=== PATIENT | female | born 1955 | race Caucasian/White ===

== ENCOUNTER → 2016-06-27 | Outpatient (CLI) | payer BC ==
--- NOTE | 2016-06-27 10:35 | MM ---
Reason for exam: follow-up at short interval from prior study. Last mammogram was performed 8 months ago. History: Patient is postmenopausal, has history of breast cancer at age 60, and is nulliparous. Family history of breast cancer in maternal aunt at age 43 and breast cancer in paternal grandmother at age 53. Malignant MG pre op needle loc RT of the right breast, December 10, 2015. Malignant MG stereo VAD BX RT of the right breast, October 21, 2015. Lumpectomy of the right breast, 2016. Radiation therapy of the right breast, 2016. Taking unspecified hormones for 1 year beginning at age 49. Physical Findings: Nurse did not find any significant physical abnormalities on exam. MG 3D Diag Mammo W/Cad ELKIN Bilateral CC and MLO view(s) were taken. XCCL view(s) were taken of the left breast. Prior study comparison: October 15, 2015, right breast US breast workup limited RT. October 14, 2015, right breast US breast workup RT. October 14, 2015, right breast MG 3d work up w/cad RT. August 15, 2013, bilateral MG screening mammo w CAD. November 23, 2011, bilateral digital screening mammo w/CAD. There are scattered fibroglandular densities. Post surgical and post therapy change in right breast. Large area of focal asymmetry with surgical clips suggestive of lumpectomy scar or post operative seroma. This can be reassessed in 6 months. These results were verbally communicated with the patient and result sheet given to the patient on 06/27/16. ASSESSMENT: Probably benign, BI-RAD 3 RECOMMENDATION: Follow-up diagnostic mammogram of the right breast in 6 months.
== END | disposition home or self-care (01) ==
LOC: RADMAMWWP 09:08
PROVIDERS: ATTEND Radiology Radiation Oncology
DX: Z85.3 Personal history of malignant neoplasm of breast (principal)
CPT/HCPCS: G0204; G0279

== ENCOUNTER → 2016-09-12 | Outpatient (CLI) | payer BC ==
[2016-09-12 10:17] LABS: Basophils # (A) 0.1 k/uL (0-0.2); Basophils % (A) 1 %; CH 28.4; CHCM 32.7; Eosinophils # (A) 0.2 k/uL (0-0.7); Eosinophils % (A) 3 %; HCT 39.5 % (34.0-46.0); HDW 2.52; HGB 13.1 gm/dL (11.4-16.0); Luc # (Auto) 0.14; Luc % (Auto) 2; Lymphocytes # (A) 1.4 k/uL (1.0-4.8); Lymphocytes % (A) 21 %; MCHC 33.1 g/dL (31.0-37.0); MCV 87.5 fL (80.0-100.0); Monocytes # (A) 0.4 k/uL (0-1.0); Monocytes % (A) 5 %; Neutrophils # (A) 4.5 k/uL (1.3-7.7); Neutrophils % (A) 67 %; RBC 4.51 m/uL (3.80-5.40); WBC 6.7 k/uL (3.8-10.6); WBC (Perox) 6.95
[2016-09-12 10:43] LABS: ALT 55 U/L (9-52); AST 32 U/L (14-36); Alkaline Phosphatase 111 U/L (38-126); Anion Gap 13 mmol/L; Blood Urea Nitrogen 18 mg/dL (7-17); Calcium 9.8 mg/dL (8.4-10.2); Carbon Dioxide 24 mmol/L (22-30); Chloride 105 mmol/L (98-107); Cholesterol 141 mg/dL (<200); Glucose 99 mg/dL (74-99); HDL Cholesterol 48 mg/dL (40-60); Non-African American GFR(MDRD) >60 (>60 ml/min/1.73 sqM); Potassium 4.3 mmol/L (3.5-5.1); Sodium 142 mmol/L (137-145); Total Bilirubin 0.5 mg/dL (0.2-1.3); Total Protein 6.6 g/dL (6.3-8.2); Triglycerides 93 mg/dL (<150)
[2016-09-12 10:50] LABS: Prealbumin 17 mg/dL (18-36)
[2016-09-12 11:30] LABS: Vitamin B12 880 pg/mL (239-931)
[2016-09-12 15:23] LABS: Hemoglobin A1C 5.8 % (4.2-6.1)
== END | disposition home or self-care (01) ==
LOC: LABWHC1 09:21
PROVIDERS: ATTEND Family Medicine
DX: E03.9 Hypothyroidism, unspecified (principal)
CPT/HCPCS: 36415; 80053; 80061; 82306; 82607; 82747; 83036; 84134; 84425; 84439; 84443; 85025

== ENCOUNTER → 2016-11-06 | Outpatient (CLI) | payer BC ==
[2016-11-06 10:19] LABS: Basophils # (A) 0.1 k/uL (0-0.2); Basophils % (A) 1 %; CH 28.6; CHCM 32.7; Eosinophils # (A) 0.3 k/uL (0-0.7); Eosinophils % (A) 4 %; HGB 13.8 gm/dL (11.4-16.0); Luc # (Auto) 0.16; Luc % (Auto) 2; Lymphocytes # (A) 1.7 k/uL (1.0-4.8); Lymphocytes % (A) 24 %; MCV 87.8 fL (80.0-100.0); Mean Platelet Volume 6.6; Monocytes # (A) 0.4 k/uL (0-1.0); Monocytes % (A) 5 %; Neutrophils # (A) 4.6 k/uL (1.3-7.7); Neutrophils % (A) 64 %; RBC 4.78 m/uL (3.80-5.40); RDW 13.7 % (11.5-15.5); WBC 7.2 k/uL (3.8-10.6); WBC (Perox) 7.64
[2016-11-06 10:41] LABS: ALT 48 U/L (9-52); AST 32 U/L (14-36); Alkaline Phosphatase 126 U/L (38-126); Anion Gap 11 mmol/L; Blood Urea Nitrogen 18 mg/dL (7-17); C Reactive Protein 26.3 mg/L (<10.0); Calcium 10.1 mg/dL (8.4-10.2); Carbon Dioxide 27 mmol/L (22-30); Chloride 103 mmol/L (98-107); Creatine Kinase 208 U/L (30-135); Glucose 108 mg/dL (74-99); Magnesium 1.8 mg/dL (1.6-2.3); Non-African American GFR(MDRD) >60 (>60 ml/min/1.73 sqM); Potassium 4.1 mmol/L (3.5-5.1); Sodium 141 mmol/L (137-145); Total Bilirubin 0.4 mg/dL (0.2-1.3); Total Protein 7.1 g/dL (6.3-8.2); Uric Acid 5.1 mg/dL (3.7-7.4)
[2016-11-06 10:42] LABS: Rheumatoid Factor, Qnt <9 IU/mL (<12)
[2016-11-06 11:27] LABS: Vitamin B12 686 pg/mL (239-931)
[2016-11-06 12:25] LABS: Hemoglobin A1C 5.7 % (4.2-6.1)
[2016-11-06 12:55] LABS: Erythrocyte Sedimentation Rate 26 mm/hr (0-20)
[2016-11-06 15:38] LABS: Iron 64 ug/dL (50-170); Iron Saturation 22.07 (12.00-45.00); Total Iron Binding Capacity 290 ug/dL (228-460)
[2016-11-06 16:55] LABS: ANA w/Reflex to Titer NEGATIVE (NEGATIVE); Cyclic Citrull Pep IgG Unit <0.5 U/mL; Cyclic Citrullinated Pep IgG NEGATIVE (NEGATIVE)
[2016-11-07 10:44] LABS: Lyme IgG/IgM Interp NEGATIVE (NEGATIVE)
== END | disposition home or self-care (01) ==
LOC: LABWHC1 09:35
PROVIDERS: ATTEND Family Medicine
DX: M13.0 Polyarthritis, unspecified (principal); K90.9 Intestinal malabsorption, unspecified; E55.9 Vitamin D deficiency, unspecified
CPT/HCPCS: 36415; 80053; 82306; 82550; 82607; 82728; 83036; 83540; 83550; 83735; 83880; 84165; 84425; 84439; 84443; 84550; 85025; 85652; 86038; 86140; 86200; 86431; 86618

== ENCOUNTER → 2016-11-23 | Outpatient (CLI) | payer BC ==
--- NOTE | 2016-11-23 15:14 | PN ---
PROGRESS NOTE DATE OF SERVICE: 11/23/2016 61-year-old lady has been followed in [facility] for treatment of obstructive sleep apnea-hypopnea syndrome. She continued to use her CPAP equipment successfully every night without significant problems related to her feeling of pressure or discomfort with the mask or humidification. During the summer, the patient had gastric sleeve surgery and lost weight from around 311 pounds down to 247 pounds. I checked her CPAP unit. CPAP pressure is 15 cm of water usage is 26/30 nights for more than 4 hours. Average usage is 6.6 hours. Leak is 31 L/minute which is borderline. Apnea-hypopnea index is only 2.7 for the last month; for the 6 months usage is 144/180 for more than 4 hours. In 6 months apnea-hypopnea index was 4.2, but at that time patient had higher weight then now. [place] Sleepiness Scale 14. MEDICATIONS: Synthroid, Prilosec, Wellbutrin, Diovan, vitamin B12, calcium supplement, Xanax, Claritin, Motrin, Arimidex, Requip, Lasix, Klonopin, melatonin 20 mg at nighttime, Voltaren. ALLERGY: , amoxicillin. PHYSICAL EXAM: During physical exam, lady without distress. BP 135/72, HR 70, RR 16, height 5 foot 4, weight 247, BMI 42.3, temperature 97.4, oxygen saturation room air 99%. HEENT: PERRLA, EOMI, evaluation of oropharynx showed low position of soft palate. NECK: Supple, no JVD. Thyroid is not palpable. LUNGS: Clear to percussion and to auscultation. Good air exchange. No wheezing or rhonchi. HEART: Very soft systolic murmurs on aorta. ABDOMEN: Obese. Soft and nontender. Bowel sounds are present. No organomegaly appreciated. EXTREMITIES: 1+ ankle edema. No clubbing or cyanosis. WICK TENDER: Awake, alert, and oriented X3. Cranial nerves 2 to 7 intact. There is no fasciculation or atrophy. noted. No focal deficits observed. IMPRESSION: 1. Obstructive sleep apnea-hypopnea syndrome. Patient demonstrated good compliance with treatment benefitting from treatment. 2. Obesity. Patient lost about 60 pounds since gastric sleeve surgery 3 months ago. 3. Gastric sleeve surgery 3 months ago. 4. Depression. 5. Hypertension. 6. Status post tonsillectomy. 7. Status post surgery for nasal septum deviation. 8. Hypothyroidism. 9. Acid reflux. 10.Anxiety. 11.Allergy. 12.Status post lumpectomy and radiation for the right breast CA about 1 year ago. PLAN: 1. Continue treatment with CPAP every night. I believe we could continue usage at present regimen. 2. Followup visit in 4 months. The patient may need adjustments of the pressure after she loses more weight. 3. No driving if feeling sleepiness. 4. Sleep hygiene with regular time in bed for at least 8 hours. Thank you very much for allowing me to participate in management of patient's care. Sincerely, Guillermo Arriaga MD, PhD, FAASM Diplomat of [employer] Texturing Machine Fixer of [facility] [place] SILVANA / AMEYA: [id number] /
== END ==
LOC: SLEEP 13:12
PROVIDERS: ATTEND Internal Medicine
DX: G47.33 Obstructive sleep apnea (adult) (pediatric) (principal); E66.9 Obesity, unspecified; F32.9 Major depressive disorder, single episode, unspecified; I10 Essential (primary) hypertension; E03.9 Hypothyroidism, unspecified; K21.9 Gastro-esophageal reflux disease without esophagitis; F41.9 Anxiety disorder, unspecified; Z98.890 Other specified postprocedural states; Z90.89 Acquired absence of other organs; Z68.41 Body mass index [BMI] 40.0-44.9, adult; Z79.899 Other long term (current) drug therapy; Z88.0 Allergy status to penicillin

== ENCOUNTER → 2017-01-01 | Outpatient (CLI) | payer BC ==
--- NOTE | 2017-01-01 14:08 | MM ---
Reason for exam: follow-up at short interval from prior study. Last mammogram was performed 6 months ago. History: Patient is postmenopausal, has history of bilateral breast cancer at age 60, and is nulliparous. Family history of breast cancer in maternal aunt at age 43 and breast cancer in paternal grandmother at age 53. Malignant MG pre op needle loc RT of the right breast, December 10, 2015. Malignant MG stereo VAD BX RT of the right breast, October 21, 2015. Lumpectomy of the right breast, 2016. Radiation therapy of the right breast, 2016. Taking unspecified hormones for 1 year beginning at age 49. Physical Findings: Nurse did not find any significant physical abnormalities on exam. MG 3D Diag Mammo W/Cad RT CC and MLO view(s) were taken of the right breast. Prior study comparison: June 27, 2016, bilateral MG 3d diag mammo w/cad ELKIN. October 14, 2015, right breast MG 3d work up w/cad RT. There are scattered fibroglandular densities. Post surgical and post therapy changes right breast. some interval fat necrosis at the medial scar. Axillary nodes are stable. Evolving post therapy changes can be reassessed in 6 months. These results were verbally communicated with the patient and result sheet given to the patient on 01/01/17. ASSESSMENT: Probably benign, BI-RAD 3 RECOMMENDATION: Follow-up diagnostic mammogram of both breasts in 6 months. Back on schedule.
== END | disposition home or self-care (01) ==
LOC: RADMAMWWP 12:46
PROVIDERS: ATTEND Radiology Radiation Oncology
DX: C50.511 Malignant neoplasm of lower-outer quadrant of right female breast (principal); Z85.3 Personal history of malignant neoplasm of breast
CPT/HCPCS: G0206; G0279

== ENCOUNTER → 2017-02-09 | Outpatient (CLI) | payer BC ==
[2017-02-10 14:12] LABS: CH 27.5; CHCM 30.7; HGB 13.7 gm/dL (11.4-16.0); Hypochromasia Slight; MCH 28.1 pg (25.0-35.0); MCHC 31.1 g/dL (31.0-37.0); MCV 90.2 fL (80.0-100.0); Mean Platelet Volume 8.6; RBC 4.88 m/uL (3.80-5.40); RDW 14.3 % (11.5-15.5); WBC 9.7 k/uL (3.8-10.6)
[2017-02-10 15:09] LABS: ALT 48 U/L (9-52); AST 45 U/L (14-36); Alkaline Phosphatase 164 U/L (38-126); Anion Gap 14 mmol/L; Blood Urea Nitrogen 24 mg/dL (7-17); Calcium 10.2 mg/dL (8.4-10.2); Carbon Dioxide 27 mmol/L (22-30); Chloride 101 mmol/L (98-107); Glucose 94 mg/dL (74-99); Non-African American GFR(MDRD) >60 (>60 ml/min/1.73 sqM); Potassium 4.4 mmol/L (3.5-5.1); Sodium 142 mmol/L (137-145); Total Bilirubin 0.5 mg/dL (0.2-1.3); Total Protein 7.4 g/dL (6.3-8.2)
== END | disposition home or self-care (01) ==
LOC: LABWHC1 11:05
PROVIDERS: ATTEND Surgery
DX: E66.01 Morbid (severe) obesity due to excess calories (principal); K90.9 Intestinal malabsorption, unspecified; E55.9 Vitamin D deficiency, unspecified
CPT/HCPCS: 36415; 80053; 82306; 82607; 83540; 84425; 85027

== ENCOUNTER → 2017-04-05 | Outpatient (CLI) | payer BC ==
--- NOTE | 2017-04-05 14:30 | PN ---
PROGRESS NOTE DATE OF SERVICE: 04/05/2017 A 61-year-old lady who has been followed in the Sleep Center for treatment of obstructive sleep apnea-hypopnea syndrome. Patient continued to use her CPAP equipment, but presently feels that the pressure is too high. She lost 110 pounds since previous titration. I checked her CPAP unit. CPAP pressure is 15 cm of water. Average usage 5.8 hours. Leak is up to 42 L/minute. For last several days patient was not able to use the machine because again of the pressure. [place] Sleepiness Scale today is 8. MEDICATIONS: Synthroid, Prilosec, Wellbutrin, valsartan, Xanax, Arimidex, Requip, Lasix, potassium supplement, Voltaren, Klonopin, vitamin B12 supplement, calcium supplement, multivitamin chewable tablets, vitamin E, B1, zinc, melatonin. PHYSICAL EXAM: Patient in no distress. BP 116/70, HR 83, RR 16, height 5, 4. Weight 203, BMI 34.8, temperature 98.0, oxygen saturation at room air 99%. OROPHARYNX: Low position of soft palate. ABDOMEN: Obese. Neck Supple, no JVD. Thyroid is not palpable. LUNGS Clear to percussion and to auscultation. Good air exchange. No wheezing or rhonchi. HEART S1, S2 regular. No murmurs, gallops, or rubs. EXTREMITIES No clubbing or cyanosis. LOADING SUPERVISOR Awake, alert, and oriented X3. Cranial nerves 2 to 7 intact. There is no fasciculation or atrophy. noted. No focal deficits observed. IMPRESSION: 1. Obstructive sleep apnea-hypopnea syndrome. Patient cannot use CPAP equipment after losing 110 pounds. 2. Obesity. 3. Status post gastric sleeve surgery in July of 2016. 4. Depression. 5. Hypertension. 6. Status post tonsillectomy. 7. Status post surgical treatment for nasal septum deviation. 8. Hypothyroidism. 9. Acid reflux. 10.Anxiety. 11.Allergy. 12.Status post lumpectomy and radiation for right breast CA about 1-1/2 years ago. PLAN: 1. I will repeat the CPAP titration for evaluation of effective CPAP pressure at the present time. 2. Losing weight. 3. Sleep hygiene with regular time in bed for at least 8 hours. 4. No driving if feeling any sleepiness. Thank you very much for allowing me to participate in the management of your patient. Sincerely, Guillermo Arriaga MD, PhD, FAASM Diplomat of [employer] Coke Burner of [facility] [place] SILVANA / AMEYA: [id number] /
== END | disposition home or self-care (01) ==
LOC: SLEEP 13:09
PROVIDERS: ATTEND Internal Medicine
DX: G47.33 Obstructive sleep apnea (adult) (pediatric) (principal); E66.9 Obesity, unspecified; I10 Essential (primary) hypertension; F32.9 Major depressive disorder, single episode, unspecified; E03.9 Hypothyroidism, unspecified; K21.9 Gastro-esophageal reflux disease without esophagitis; F41.9 Anxiety disorder, unspecified; T78.40XA Allergy, unspecified, initial encounter; Z98.84 Bariatric surgery status; Z90.89 Acquired absence of other organs; Z99.89 Dependence on other enabling machines and devices; Z92.3 Personal history of irradiation; Z98.890 Other specified postprocedural states; Z68.34 Body mass index [BMI] 34.0-34.9, adult; Z79.899 Other long term (current) drug therapy

== ENCOUNTER → 2017-07-02 | Outpatient (CLI) | payer BC ==
--- NOTE | 2017-07-02 10:14 | MM ---
Reason for exam: additional evaluation requested from prior study. Last mammogram was performed 6 months ago. History: Patient is postmenopausal, has history of bilateral breast cancer at age 60, and is nulliparous. Family history of breast cancer in maternal aunt at age 43 and breast cancer in paternal grandmother at age 53. Malignant MG pre op needle loc RT of the right breast, December 10, 2015. Malignant MG stereo VAD BX RT of the right breast, October 21, 2015. Lumpectomy of the right breast, 2015. Radiation therapy of the right breast, 2016. Taking unspecified hormones for 1 year beginning at age 49. Physical Findings: Nurse did not find any significant physical abnormalities on exam. MG 3D Diag Mammo W/Cad ELKIN Bilateral CC and MLO view(s) were taken. Prior study comparison: January 01, 2017, right breast MG 3d diag mammo w/cad RT. June 27, 2016, bilateral MG 3d diag mammo w/cad ELKIN. No significant new findings when compared with previous films. These results were verbally communicated with the patient and result sheet given to the patient on 07/02/17. ASSESSMENT: Benign, BI-RAD 2 RECOMMENDATION: Follow-up diagnostic mammogram of both breasts in 1 year.
== END | disposition home or self-care (01) ==
LOC: RADMAMWWP 09:03
PROVIDERS: ATTEND Radiology Radiation Oncology
DX: Z08 Encounter for follow-up examination after completed treatment for malignant neoplasm (principal); Z85.3 Personal history of malignant neoplasm of breast
CPT/HCPCS: 77062; 77066

== ENCOUNTER → 2017-09-11 | Outpatient (CLI) | payer BC ==
[2017-09-11 09:15] LABS: ALT 96 U/L (9-52); AST 47 U/L (14-36); Albumin 3.7 g/dL (3.5-5.0); Alkaline Phosphatase 95 U/L (38-126); Anion Gap 7 mmol/L; Blood Urea Nitrogen 20 mg/dL (7-17); Calcium 9.4 mg/dL (8.4-10.2); Carbon Dioxide 26 mmol/L (22-30); Chloride 106 mmol/L (98-107); Glucose 91 mg/dL (74-99); HCT 39.1 % (34.0-46.0); HGB 12.8 gm/dL (11.4-16.0); MCH 29.2 pg (25.0-35.0); MCHC 32.8 g/dL (31.0-37.0); Mean Platelet Volume 6.5; Platelet Count 238 k/uL (150-450); Potassium 4.3 mmol/L (3.5-5.1); RBC 4.39 m/uL (3.80-5.40); RDW 13.3 % (11.5-15.5); Sodium 139 mmol/L (137-145); Total Bilirubin 0.3 mg/dL (0.2-1.3); Total Protein 6.2 g/dL (6.3-8.2); WBC 5.6 k/uL (3.8-10.6)
[2017-09-11 16:07] LABS: Vitamin D 25 Hydroxy 57.4 ng/mL (30.0-100.0)
== END | disposition home or self-care (01) ==
LOC: LABWHC1 08:24
PROVIDERS: ATTEND Surgery
DX: K90.9 Intestinal malabsorption, unspecified (principal); E55.9 Vitamin D deficiency, unspecified
CPT/HCPCS: 36415; 80053; 82306; 82607; 83540; 84425; 85027

== ENCOUNTER → 2017-09-28 | Outpatient (CLI) | payer BC ==
[2017-09-28 07:22] LABS: Basophils # (A) 0.1 k/uL (0-0.2); Basophils % (A) 1 %; Eosinophils # (A) 0.3 k/uL (0-0.7); Eosinophils % (A) 4 %; HCT 42.3 % (34.0-46.0); HGB 13.9 gm/dL (11.4-16.0); Lymphocytes # (A) 2.5 k/uL (1.0-4.8); Lymphocytes % (A) 37 %; MCHC 32.8 g/dL (31.0-37.0); MCV 88.4 fL (80.0-100.0); Mean Platelet Volume 7.1; Monocytes # (A) 0.4 k/uL (0-1.0); Monocytes % (A) 6 %; Neutrophils # (A) 3.3 k/uL (1.3-7.7); Neutrophils % (A) 48 %; Platelet Count 229 k/uL (150-450); RBC 4.79 m/uL (3.80-5.40); RDW 12.9 % (11.5-15.5); WBC 6.8 k/uL (3.8-10.6)
== END | disposition home or self-care (01) ==
LOC: LABWHC1 07:10
PROVIDERS: ATTEND Internal Medicine
DX: I10 Essential (primary) hypertension (principal)
CPT/HCPCS: 36415; 80061; 84443; 85025

== ENCOUNTER → 2018-01-18 | Day surgery (SDC) | payer BC ==
[2018-01-14 15:47] VITALS: BMI 29.8
[~2018-01-18] MED LIST: LACTATED RINGERS 1,000 ML IV ONE; LACTATED RINGERS 1,000 ML IV SCH; LIDOCAINE 1% INJ 10MG/ML (20 ML MDV) ONE; PROPOFOL 10 MG/ML 20 ML VIAL IV ONE
[2018-01-18 07:17] VITALS: RESP 16; TEMP 97.6
--- NOTE | 2018-01-18 07:40 | P.GSHP ---
History of Present Illness H&P Date: 01/18/18 Chief Complaint: Colon cancer screening Patient here today for colonoscopy. This is for screening purposes. No bowel related complaints. Last colonoscopy 7-10 years ago which was normal. No rectal bleeding or melena. Past Medical History Past Medical History: Cancer, GERD/Reflux, Hypertension, Osteoarthritis (OA), Sleep Apnea/CPAP/BIPAP, Thyroid Disorder Additional Past Medical History / Comment(s): breast CA dx Oct 2015, CPAP History of Any Multi-Drug Resistant Organisms: None Reported Past Surgical History: Bariatric Surgery, Breast Surgery, Joint Replacement, Orthopedic Surgery, Tonsillectomy Additional Past Surgical History / Comment(s): fatou knee replacement, ORIF rt shoulder,sleep apnea surg,sinus surg, GASTRIC SLEEVE 07/2016, RT BREAST LUMPECTOMY, COLONOSCOPY Past Anesthesia/Blood Transfusion Reactions: No Reported Reaction Smoking Status: Never smoker - Past Family History Mother Family Medical History: Cancer Additional Family Medical History / Comment(s): breast lumpectomy Father Family Medical History: Memory Impairment Additional Family Medical History / Comment(s): osteoporosis Medications and Allergies Home Medications Medication Instructions Recorded Confirmed Type Acetaminophen Tab [Tylenol Tab] 1,000 mg PO BID PRN #0 11/11/13 01/18/18 History Levothyroxine Sodium [Synthroid] 100 mcg PO QAM 11/11/13 01/18/18 History Pseudoephedrine HCl [Sudafed 12 120 mg PO HS PRN 11/11/13 01/18/18 History Hour] buPROPion XL [Wellbutrin XL] 200 mg PO BID 11/11/13 01/18/18 History ALPRAZolam [Xanax] 0.25 mg PO BID PRN #30 tablet 11/20/13 01/18/18 Rx Melatonin 10 mg PO HS 12/08/15 01/18/18 History Vitamin E (Dl,Tocopheryl Acet) 400 unit PO DAILY 12/08/15 01/14/18 History [Vitamin E] Zinc 50 mg PO DAILY 12/08/15 01/18/18 History Anastrozole [Arimidex] 1 mg PO HS 01/14/18 01/18/18 History Calcium Carb/Vitamin D3/Vit K1 1 each PO BID 01/14/18 01/18/18 History [Citracal Soft Chew] Cyanocobalamin (Vitamin B-12) 1,000 mcg PO MO 01/14/18 01/18/18 History [Vitamin B-12] Ibuprofen [Motrin Ib] 400 mg PO BID 01/14/18 01/14/18 History Iron 18 mg PO DAILY 01/14/18 01/14/18 History Losartan Potassium [Cozaar] 25 mg PO DAILY 01/14/18 01/18/18 History Multivitamin [Multivitamins Adult 1 each PO DAILY 01/14/18 01/18/18 History Gummies] Thiamine [Vitamin B-1] 100 mg PO DAILY 01/14/18 01/18/18 History Vit C/E/Zn/Coppr/Lutein/Zeaxan 1 each PO DAILY 01/14/18 01/18/18 History [Preservision Areds 2 Softgel] rOPINIRole HCL [Requip] 0.25 mg PO HS 01/14/18 01/18/18 History Allergies Allergy/AdvReac Type Severity Reaction Status Date / Time Sulfa (Sulfonamide Allergy Severe Rash/Hives, Verified 01/18/18 07:24 Antibiotics) itching amoxicillin [Amoxicillin] Allergy Unknown Rash/Hives Verified 01/18/18 07:24 Surgical - Exam Vital Signs Temp Pulse Resp BP Pulse Ox 97.6 F 77 16 133/71 98 01/18/18 07:16 01/18/18 07:16 01/18/18 07:16 01/18/18 07:16 01/18/18 07:16 Physical exam: General: Well-developed, well-nourished HEENT: Normocephalic, sclerae nonicteric Abdomen: Nontender, nondistended Extremities: No edema Neuro: Alert and oriented Assessment and Plan (1) Colon cancer screening Narrative/Plan: Will proceed with colonoscopy at this time. Current Visit: Yes Status: Acute Code(s): Z12.11 - ENCOUNTER FOR SCREENING FOR MALIGNANT NEOPLASM OF COLON SNOMED Code(s): 226270852
--- NOTE | 2018-01-18 07:52 | P.PCN ---
Date of Procedure: 01/18/18 Procedure(s) Performed: PREOPERATIVE DIAGNOSIS: Colon cancer screening POSTOPERATIVE DIAGNOSIS: Poor prep aborted procedure PROCEDURE: Attempted colonoscopy ANESTHESIA: MAC SURGEON: Devendra Mccormick M.D. SPECIMENS: None ENDOSCOPIC PROCEDURE: The patient was placed on the endoscopy table in the left decubitus position. The Olympus colonoscope was inserted into the anus and passed under direct visualization to the proximal sigmoid colon. The patient had liquid and solid stool seen throughout. I was unable to visualize really any of the mucosal surfaces. The scope was withdrawn and the procedure was aborted. The patient was taken to the recovery room in stable condition per anesthesia guidelines. RECOMMENDATIONS: Patient will require repeat attempts at colonoscopy.
[2018-01-18 08:03] VITALS: BP 111/68; PULSE 80
== END ==
LOC: ORWHC2ENDO 06:41
PROVIDERS: ATTEND Surgery
DX: Z12.11 Encounter for screening for malignant neoplasm of colon (principal); E07.9 Disorder of thyroid, unspecified; I10 Essential (primary) hypertension; K21.9 Gastro-esophageal reflux disease without esophagitis; M19.90 Unspecified osteoarthritis, unspecified site; Z85.3 Personal history of malignant neoplasm of breast; Z88.0 Allergy status to penicillin; Z96.653 Presence of artificial knee joint, bilateral; Z98.84 Bariatric surgery status; Z79.1 Long term (current) use of non-steroidal anti-inflammatories (NSAID); Z79.890 Hormone replacement therapy; Z79.899 Other long term (current) drug therapy; Z88.2 Allergy status to sulfonamides; Z53.8 Procedure and treatment not carried out for other reasons
CPT/HCPCS: J2001; J2704; G0104

== ENCOUNTER → 2018-02-15 | Outpatient (CLI) | payer BC ==
--- NOTE | 2018-02-15 16:55 | BD ---
EXAMINATION TYPE: Axial Bone Density DATE OF EXAM: 02/15/2018 COMPARISON: NONE CLINICAL HISTORY: Height: 64 Weight: 175.9 FRAX RISK QUESTIONS: Alcohol (3 or more units per day): no Family History (Parent hip fracture): no Glucocorticoids (More than 3mos): no (Ex: prednisone, prednisolone, methylprednisolone, dexamethasone, and hydrocortisone). History of Fracture in Adulthood: no Secondary Osteoporosis: 1. Type 1 Diabetes: no 2. Hyperthyroidism: no 3. Menopause before 45: no 4. Malnutrition: no 5. Chronic liver disease: no Rheumatoid Arthritis: no Current Tobacco Use: no RISK FACTORS HISTORY OF: Family History of Osteoporosis: yes Active: yes Diet low in dairy products/other sources of calcium: no Postmenopausal woman: age 59 Lost more than 2 inches in height since high school: no MEDICATIONS: arimadex, losartin, wellbutrin, vitamins, calcium Thyroid Medications: synthroid How Lon years Additional History: breast cancer two years ago EXAM MEASUREMENTS: Bone mineral densitometry was performed using the [employer] System. Bone mineral density as measured about the Lumbar spine is: ----- L1-L4(G/cm2): 1.895 T Score Values are as follows: ----- L2: 6.2 ----- L3: 5.6 ----- L4: 5.0 ----- L1-L4: 5.7 Bone mineral density has: decreased -0.5 % since study of: 01.28.2016 Bone mineral density about the R hip (g/cm2): 1.145 Bone mineral density about the L hip (g/cm2): 1.310 T Score values are as follows: -----R Neck: -0.8 -----L Neck: 2.0 -----R Total: 1.7 -----L Total: 2.6 Bone mineral density has: decreased -2.7 % since study of: 01.28.2016 IMPRESSION: Normal (Values between +1 and -1 indicate normal bone mass). Consider repeating this study in 5 year s or sooner if there is some new clinical indication. NOTE: T-SCORE=SD OF THE YOUNG ADULT MEAN.
== END | disposition home or self-care (01) ==
LOC: RADBDWWP 09:30
PROVIDERS: ATTEND Internal Medicine Hematology & Oncology
DX: C50.211 Malignant neoplasm of upper-inner quadrant of right female breast (principal); Z79.890 Hormone replacement therapy
CPT/HCPCS: 77080

== ENCOUNTER → 2018-06-28 | Outpatient (CLI) | payer BC ==
--- NOTE | 2018-06-28 11:30 | MM ---
Reason for exam: additional evaluation requested from prior study. Last mammogram was performed 1 year ago. History: Patient is postmenopausal, has history of bilateral breast cancer at age 60, and is nulliparous. Family history of breast cancer in maternal aunt at age 43 and breast cancer in paternal grandmother at age 53. Malignant MG pre op needle loc RT of the right breast, December 10, 2015. Malignant MG stereo VAD BX RT of the right breast, October 21, 2015. Lumpectomy of the right breast, 2015. Radiation therapy of the right breast, 2016. Taking unspecified hormones for 1 year beginning at age 49. Physical Findings: Nurse did not find any significant physical abnormalities on exam. MG 3D Diag Mammo W/Cad ELKIN Bilateral CC and MLO view(s) were taken. Prior study comparison: July 02, 2017, bilateral MG 3d diag mammo w/cad ELKIN. January 01, 2017, right breast MG 3d diag mammo w/cad RT. The breast tissue is heterogeneously dense. This may lower the sensitivity of mammography. Stable benign calcifications. Stable post lumpectomy changes right breast. No significant new findings when compared with previous films. These results were verbally communicated with the patient and result sheet given to the patient on 06/28/18. ASSESSMENT: Benign, BI-RAD 2 RECOMMENDATION: Follow-up diagnostic mammogram of both breasts in 1 year.
== END | disposition home or self-care (01) ==
LOC: RADMAMWWP 08:43
PROVIDERS: ATTEND Radiology Radiation Oncology
DX: C50.511 Malignant neoplasm of lower-outer quadrant of right female breast (principal); Z98.890 Other specified postprocedural states
CPT/HCPCS: 77062; 77066

== ENCOUNTER → 2018-09-02 | Outpatient (CLI) | payer BC ==
[2018-09-02 09:02] LABS: Basophils # (A) 0.1 k/uL (0-0.2); Basophils % (A) 1 %; Eosinophils # (A) 0.3 k/uL (0-0.7); Eosinophils % (A) 4 %; HGB 13.1 gm/dL (11.4-16.0); Lymphocytes # (A) 2.3 k/uL (1.0-4.8); Lymphocytes % (A) 36 %; MCH 28.8 pg (25.0-35.0); MCHC 31.9 g/dL (31.0-37.0); MCV 90.2 fL (80.0-100.0); Mean Platelet Volume 6.3; Monocytes # (A) 0.3 k/uL (0-1.0); Monocytes % (A) 5 %; Neutrophils # (A) 3.2 k/uL (1.3-7.7); Neutrophils % (A) 50 %; Platelet Count 251 k/uL (150-450); RBC 4.54 m/uL (3.80-5.40); RDW 13.5 % (11.5-15.5); WBC 6.3 k/uL (3.8-10.6)
[2018-09-02 16:07] LABS: African American GFR (CKD) 107.6 (60.0-200.0); Albumin 4.1 g/dL (3.80-4.90); Albumin/Globulin Ratio 2.28 (1.60-3.17); Anion Gap 6.3 mmol/L (4.00-12.00); BUN/Creat Ratio 25.71 Ratio (12.00-20.00); Calcium 9.7 mg/dL (8.7-10.3); Carbon Dioxide 28.7 mmol/L (21.6-31.8); Globulin 1.8 g/dL (1.6-3.3); LDL Cholesterol,Calculated 80.8 mg/dL (0.0-131.0); Potassium 4.2 mmol/L (3.5-5.5); Total Bilirubin 0.4 mg/dL (0.2-1.2); Total Protein 5.9 g/dL (6.2-8.2); VLDL Calculation 15.2 mg/dL (5.00-40.00)
[2018-09-02 16:16] LABS: Vitamin D 25 Hydroxy 31.7 ng/mL (30.0-100.0)
[2018-09-02 16:27] LABS: Folate, Serum >24.0 ng/mL
== END | disposition home or self-care (01) ==
LOC: LABWHC1 08:09
PROVIDERS: ATTEND Surgery
DX: E66.01 Morbid (severe) obesity due to excess calories (principal); K90.9 Intestinal malabsorption, unspecified; E55.9 Vitamin D deficiency, unspecified; I10 Essential (primary) hypertension; E03.9 Hypothyroidism, unspecified; Z13.220 Encounter for screening for lipoid disorders
CPT/HCPCS: 36415; 80053; 80061; 82306; 82607; 82746; 83540; 84425; 84443; 85025

== ENCOUNTER → 2019-03-06 | Outpatient (CLI) | payer BC ==
--- NOTE | 2019-03-06 16:00 | SFUN ---
SLEEP CENTER FOLLOW UP NOTE DATE OF SERVICE: 03/06/2019 A 63-year-old lady who has been followed in the Sleep Center for treatment of obstructive sleep apnea-hypopnea syndrome. The patient continued to use her CPAP equipment, but then developed some problems related to usage of nasal pillow mask, irritation of her nose. [place] Sleepiness Scale today is 13. I checked her CPAP unit, CPAP pressure is 7 cm of water. Usage is 14/30 nights for the last month and 10/30 nights for more than 4 hours for the last 6 months. It is 151 nights usage and 134 nights more than 4 hours with average usage 5.6 hours per night. Leak 7 L/minute, For the last month, apnea-hypopnea index 7.9. MEDICATIONS: Synthroid, Wellbutrin, losartan, Xanax, Arimidex, Requip, Motrin, zinc, melatonin, Xanax. PHYSICAL EXAM: Patient in no distress, BP 140/80, HR 90, RR 16, height 5 feet 3-1/2 inches, weight 189, which is 2 pounds less than during the previous visit and body mass index 32.9, temperature 98.5, oxygen saturation at room air 98%. OROPHARYNX: Low position of soft palate, Mallampati 3. ABDOMEN: Obese. NECK: Supple, no JVD. Thyroid is not palpable. LUNGS: Clear to percussion and to auscultation. Good air exchange. No wheezing or rhonchi. HEART: S1, S2 regular. No murmurs, gallops, or rubs. ABDOMEN: Soft and nontender. Bowel sounds are present. No organomegaly appreciated. EXTREMITIES: No clubbing or cyanosis. SPRAY TECHNICIAN: Awake, alert, and oriented X3. Cranial nerves 2 to 7 intact. There is no fasciculation or atrophy. noted. No focal deficits observed. IMPRESSION: 1. Obstructive sleep apnea-hypopnea syndrome. Patient using CPAP equipment, benefitting from treatment. 2. Obesity, status post gastric sleeve surgery in 2017. 3. Depression. 4. Hypertension. 5. Status post tonsillectomy. 6. Status post surgical treatment for nasal septum deviation. 7. Hypothyroidism. 8. History of acid reflux, no symptoms at the present time. .. 9. History of anxiety. 10.Allergies. 11.Status post surgical and radiation therapy for right breast CA about 3-1/2 years ago. PLAN: 1. We fit this patient with a different style of mask with Air feed in the 20. The patient likes it. She will continue to use the equipment. 2. Patient will continue to use CPAP equipment with the same pressure with the new style of mask. 3. Watching and losing weight. 4. Sleep hygiene with regular time in bed for at least 7-1/2 - 8 hours. 5. No driving if feeling sleepiness. 6. I will increase pressure to 8 cm of water. Thank you very much for allowing me to participate in the management of your patient. Sincerely, Guillermo Arriaga MD, PhD, FAASM Diplomat of [employer] [employer] Publishing Specialist of [facility] [place] MMODL / CASSIDYN: [id number] /
== END | disposition home or self-care (01) ==
LOC: SLEEP 14:13
PROVIDERS: ATTEND Internal Medicine
DX: G47.33 Obstructive sleep apnea (adult) (pediatric) (principal); E66.9 Obesity, unspecified; F32.9 Major depressive disorder, single episode, unspecified; I10 Essential (primary) hypertension; E03.9 Hypothyroidism, unspecified; T78.40XA Allergy, unspecified, initial encounter; Z68.32 Body mass index [BMI] 32.0-32.9, adult; Z87.19 Personal history of other diseases of the digestive system; Z86.59 Personal history of other mental and behavioral disorders; Z85.3 Personal history of malignant neoplasm of breast; Z90.89 Acquired absence of other organs; Z98.84 Bariatric surgery status; Z92.3 Personal history of irradiation; Z98.890 Other specified postprocedural states; Z99.89 Dependence on other enabling machines and devices; Z79.890 Hormone replacement therapy; Z79.1 Long term (current) use of non-steroidal anti-inflammatories (NSAID); Z79.899 Other long term (current) drug therapy

== ENCOUNTER → 2019-04-03 | Outpatient (CLI) | payer BC | END | disposition home or self-care (01) | LOC: LABPAT 09:15 | PROVIDERS: ATTEND Orthopaedic Surgery | DX: Z01.812 Encounter for preprocedural laboratory examination (principal); M16.12 Unilateral primary osteoarthritis, left hip | CPT/HCPCS: 87070 ==

== ENCOUNTER 2019-04-14 06:14 | Inpatient (IN) | payer BC ==
[2019-04-08 08:59] VITALS: BMI 32.5
--- NOTE | 2019-04-13 14:06 | HP ---
HISTORY AND PHYSICAL DATE OF SURGERY: 04/14/2019 Vicki Delgadillo is a 63-year-old patient who was seen with symptomatic left hip osteoarthritis. We discussed options for treatment. She elected to proceed with left total hip arthroplasty. Consent regarding the procedure was obtained. Clearance was provided by Dr. Safia Mccormick. PAST MEDICAL HISTORY: Hypertension, hypothyroidism, depression. PAST SURGICAL HISTORY: Left total knee arthroplasty, right total knee arthroplasty, sinus surgery, right shoulder arthroscopy, gastric sleeve surgery. DAILY MEDICATIONS: 1. Losartan. 2. Requip. 3. Synthroid. 4. Wellbutrin. 5. Xanax. ALLERGIES: SULFA AND AMOXICILLIN. SOCIAL HISTORY: She denies current tobacco use. PHYSICAL EXAMINATION: Evaluation of the left hip: There is diffuse tenderness. Very limited range of motion with severe pain. Positive hip impingement sign. Straight-leg raise negative. Distal neurovascular exam is intact. RADIOGRAPHS: Radiographs of the left hip revealed severe osteoarthritic changes. IMPRESSION: 1. Left hip osteoarthritis. 2. Hypothyroidism. 3. Hypertension. PLAN: Left total hip arthroplasty. Surgery 04/14/2019. MMODL / IJN: [id number] /
[~2019-04-14 06:14] MED LIST changes: +ACETAMINOPHEN TAB 500 MG TAB PO ONE; +HYDROmorphone 0.5 MG/0.5 ML SYRINGE IVP PRN; -LACTATED RINGERS 1,000 ML IV ONE; -LACTATED RINGERS 1,000 ML IV SCH; +LIDOCAINE 1% 20 ML VIAL (10MG/ML) FOR IV START INTRADERMA PRN; -LIDOCAINE 1% INJ 10MG/ML (20 ML MDV) ONE; +MELOXICAM 7.5 MG TAB PO ONE; +MIDAZOLAM 2 MG/2 ML VIAL IV PRN; -PROPOFOL 10 MG/ML 20 ML VIAL IV ONE; +TRANEXAMIC ACID 1,000 MG in SODIUM CHLORIDE 0.9% 100 ML IVPB ONE
[2019-04-14] MEDS: LACTATED RINGERS 1,000 ML IV SCH ×5 (07:00→21:58)
[2019-04-14] MEDS ORDERED: DEXAMETHASONE SOD PHOSPHATE 10 MG/ML 1 ML VIAL IV ONE (07:05)
[2019-04-14] MEDS ORDERED: ONDANSETRON 4 MG/2 ML VIAL IVP ONE (07:06)
[2019-04-14] MEDS ORDERED: fentaNYL (PF) 50 MCG/ML 2 ML AMP ONE (07:24)
[2019-04-14] MEDS ORDERED: MIDAZOLAM 2 MG/2 ML VIAL ONE (07:24)
[2019-04-14] MEDS ORDERED: PROPOFOL 10 MG/ML 20 ML VIAL IV ONE (07:24)
[2019-04-14] MEDS ORDERED: TRANEXAMIC ACID 1,000 MG/10 ML VIAL ONE (07:24)
[2019-04-14] MEDS ORDERED: PHENYLEPHRINE-0.9% NACL SYG 1 MG/10 ML SYRINGE ONE (07:24)
[2019-04-14] MEDS ORDERED: SODIUM CHLORIDE 0.9% 100 ML BAG ONE (07:24)
[2019-04-14] MEDS: ROPIVACAINE 246.25 MG, EPINEPHrine 0.5 MG, KETOROLAC 30 MG, cloNIDine HCL/PF 80 MCG, WA... MISCELLANE ONE ×10 (08:08→09:02)
[2019-04-14] MEDS ORDERED: ceFAZolin 3,000 MG in SODIUM CHLORIDE 0.9% IRRIGATIO 3,000 ML IRRIGATION ONE (08:09)
[2019-04-14] MEDS ORDERED: LACTATED RINGERS 1,000 ML IV ONE (09:02)
--- NOTE | 2019-04-14 09:18 | XR ---
Fluoroscopy History: LEFT HIP-ANTERIOR LEFT HIP ANTERIOR, 16 SECONDS FLUORO TIME. BALAJI
[2019-04-14] MEDS ORDERED: NALOXONE 0.4 MG/ML 1 ML VIAL IV PRN (09:24)
[2019-04-14] MEDS ORDERED: ONDANSETRON 4 MG/2 ML VIAL IVP PRN (09:24)
[2019-04-14] MEDS ORDERED: HYDROcodone/APAP 5-325MG 1 EACH TAB PO PRN (09:24)
[2019-04-14] MEDS ORDERED: HYDROmorphone 0.5 MG/0.5 ML SYRINGE IVP PRN ×2 (09:24)
[2019-04-14] MEDS ORDERED: HYDROmorphone 1 MG/ML 1 ML SYRINGE IVP PRN (09:24)
--- NOTE | 2019-04-14 09:24 | P.OP ---
Date of Procedure: 04/14/19 Preoperative Diagnosis: Left hip osteoarthritis Postoperative Diagnosis: Left hip osteoarthritis Procedure(s) Performed: Direct anterior left total hip arthroplasty Implants: 1. Depuy Corail KA size 10 standard collar press-fit femoral stem 2. Depuy pinnacle 54 mm press-fit acetabular shell 3. Depuy pinnacle neutral polyethylene acetabular liner 36 mm ID 54 mm OD 4. Biolox delta ceramic femoral head +1.5 36 mm Anesthesia: local, spinal Surgeon: Miky Clarke Slasher Hand #1: Rojelio Duarte Estimated Blood Loss (ml): 150 Pathology: other (Femoral head) Condition: stable Disposition: PACU Indications for Procedure: 63-year-old patient seen with symptomatic left hip osteoarthritis. After having options regarding treatment discussed with her, she elected to proceed with total hip arthroplasty. Operative Findings: See description of procedure Description of Procedure: The patient was taken to the operative suite. Patient underwent a spinal anesthetic by the department of anesthesia. Patient was then transferred to the [place] table. Patient was given preoperative IV antibiotics and TXA. Both lower extremities were placed in standard leg spars. The hip was then prepped and draped in the normal sterile orthopedic fashion. A standard anterior incision was made beginning 3 cm lateral and 1 cm distal to the ASIS extending 10 cm. Dissection was then carried down through the subcutaneous soft tissues down to the fascia overlying the tensor fascia nayely. An incision was now made through the fascia. Careful dissection was taken down exposing the tensor fascia nayely muscle. A Cobra retractor was now placed along the medial femoral neck and a second one along the lateral femoral neck. The venous circumflex vessels were now identified, cauterized and clipped. We identified the anterior hip capsule. An incision was made through the hip capsule along the lateral border. I performed a partial anterior capsulectomy. Retractors were now placed around the femoral neck itself. A femoral neck cut was now made with a sagittal saw. It was completed with an osteotome at the lateral neck area. The femoral head was now removed without difficulty. The extremity was now rotated to 45 of external rotation. It was locked in position. Residual labrum was now debrided out. Serial reaming was performed of the acetabulum while Pop salgado isted holding an anterior retractor for exposure. Once we reached the appropriate size and a trial was position and fit nicely. The appropriate size was now chosen opened and made available. It was introduced into the acetabulum without difficulty. The C-arm/fluoroscopy was now brought into the operative field. We made sure we had a true AP pelvic view. We now under direct C- arm/fluoroscopy introduced into the acetabular component with appropriate version and inclination. I held the cup in appropriate position well Pop IRBY used a mallet to seat the acetabular component. I noted the component now to be well seated and stable. Acetabular cup introduce her was removed. The C-arm was pulled back. An appropriate liner was introduced and clicked into position. It was felt to be stable. At this point retractors were removed. The extremity was now placed into 120 external rotation with no traction. The leg was now dropped to the ground and adducted. Appropriate retractors were now positioned along the proximal femur. We also placed our femoral look into position. Additional capsular releasing was performed to gain access to the proximal femur. We now used a box osteotome. A canal finder was now utilized. Serial broaching was now performed with the assistance of Pop IRBY tapping the broaches down with a mallet while held the broach in appropriate rotation and position. This was done until we reached the appropriate size with good overall rotational stability. Appropriate calcar planing was performed. A trial head/neck was placed into position. The hip was now reduced. The C- arm/fluoroscopy was brought back into the operative field. An AP pelvis was obtained to confirm leg length alignment. The trial components appear to be well-positioned and appropriate in regards size. The C-arm/fluoroscopy was pulled back. Retractors were repositioned and the hip was dislocated. The leg was again taken down to the ground and adducted. Appropriate retractors were repositioned as well as the femoral hook. All trial components were removed. The femoral implant was opened along with the femoral head. The femoral implant was introduced on the appropriate handle into our pre-broached area. I held the component position well Pop IRBY used a mallet to seat the femoral component. The femoral component was now noted to be well seated and stable.. The femoral head was introduced with good positioning and fixation noted. Retractors were now removed. The hip was now reduced. There appeared be good positioning of the hip confirmed on intraoperative fluoroscopy. Spot films were obtained to document this. A second gram of TXA was given. The deep and superficial soft tissues were infiltrated with local analgesic. Bipolar cautery had been utilized intermittently through the procedure for hemostasis. The wound was irrigated copiously with pulse lavage mechanical irrigation. The fascia was repaired with Vicryl suture. The subcutaneous soft tissues were repaired in layers with Vicryl suture. The skin was approximated with pernio/Dermabond. Sterile dressings were applied. Patient was then awakened, transferred to a bed and taken to recovery in stable condition. Pop IRBY assisted with the complex procedure.
[2019-04-14] MEDS ORDERED: MELATONIN 5 MG TABLET PO PRN (11:35)
[2019-04-14] MEDS ORDERED: ALPRAZolam 0.25 MG TAB PO PRN (11:35)
--- NOTE | 2019-04-14 12:30 | P.CONS ---
History of Present Illness - Reason for Consult Recommendations regarding antidepressive medications - History of Present Illness Patient is admitted for elective left hip arthroplasty, patient will get a was removed patient is clinically doing well after surgery did not pass gas yet. Patient denied any fever chills dysuria cough. Review of Systems REVIEW OF SYSTEMS: CONSTITUTIONAL: No fever, no malaise, no fatigue. HEENT: No recent visual problems or hearing problems. Denied any sore throat. CARDIOVASCULAR: No chest pain, orthopnea, PND, no palpitations, no syncope. PULMONARY: No shortness of breath, no cough, no hemoptysis. GASTROINTESTINAL: No diarrhea, no nausea, no vomiting, no abdominal pain. NEUROLOGICAL: No headaches, no weakness, no numbness. HEMATOLOGICAL: Denies any bleeding or petechiae. GENITOURINARY: Denies any burning micturition, frequency, or urgency. MUSCULOSKELETAL/RHEUMATOLOGICAL: Denies any joint pain, swelling, or any muscle pain. ENDOCRINE: Denies any polyuria or polydipsia. The rest of the 14-point review of systems is negative. Past Medical History Past Medical History: Cancer, Hypertension, Osteoarthritis (OA), Sleep Apnea/CPAP/BIPAP, Thyroid Disorder Additional Past Medical History / Comment(s): breast CA dx Oct 2015,,hypothyroid History of Any Multi-Drug Resistant Organisms: None Reported Past Surgical History: Bariatric Surgery, Joint Replacement, Orthopedic Surgery, Tonsillectomy Additional Past Surgical History / Comment(s): fatou knee replacement, ORIF rt shoulder,sleep apnea surg,sinus surg, colonoscopy, egd Past Anesthesia/Blood Transfusion Reactions: No Reported Reaction Past Psychological History: Depression Smoking Status: Never smoker Past Alcohol Use History: Occasional Past Drug Use History: None Reported - Past Family History Mother Family Medical History: Cancer Additional Family Medical History / Comment(s): breast lumpectomy Father Family Medical History: Memory Impairment Additional Family Medical History / Comment(s): osteoporosis Medications and Allergies Home Medications Medication Instructions Recorded Confirmed Type Acetaminophen Tab [Tylenol Tab] 1,000 mg PO BID PRN #0 11/11/13 04/14/19 History Levothyroxine Sodium [Synthroid] 100 mcg PO QAM 11/11/13 04/08/19 History Pseudoephedrine HCl [Sudafed 12 120 mg PO HS PRN 11/11/13 04/14/19 History Hour] buPROPion XL [Wellbutrin XL] 200 mg PO BID 11/11/13 04/08/19 History ALPRAZolam [Xanax] 0.25 mg PO BID PRN #30 tablet 11/20/13 04/14/19 Rx Melatonin 10 mg PO HS 12/08/15 04/14/19 History Zinc 50 mg PO DAILY 12/08/15 04/14/19 History Anastrozole [Arimidex] 1 mg PO HS 01/14/18 04/14/19 History Ibuprofen [Motrin Ib] 400 mg PO BID 01/14/18 04/08/19 History Losartan Potassium [Cozaar] 25 mg PO DAILY 01/14/18 04/08/19 History Multivitamin [Multivitamins Adult 1 each PO DAILY 01/14/18 04/08/19 History Gummies] Thiamine [Vitamin B-1] 100 mg PO DAILY 01/14/18 04/14/19 History rOPINIRole HCL [Requip] 0.25 mg PO HS 01/14/18 04/14/19 History Allergies Allergy/AdvReac Type Severity Reaction Status Date / Time Sulfa (Sulfonamide Allergy Severe Rash/Hives, Verified 04/08/19 08:43 Antibiotics) itching amoxicillin [Amoxicillin] Allergy Unknown Rash/Hives Verified 04/08/19 08:43 Physical Exam Vitals: Vital Signs Temp Pulse Pulse Resp BP BP Pulse Ox 04/14/19 10:08 59 L 16 138/76 100 04/14/19 09:53 59 L 16 129/66 100 04/14/19 09:37 96.8 F L 70 16 122/62 97 04/14/19 06:48 98.1 F 67 16 140/83 96 Intake and Output 04/13/19 04/14/19 04/14/19 22:59 06:59 14:59 Intake Total 1301 Output Total 150 Balance 1151 Intake: IV 1301 Output: Estimated Blood Loss 150 Other: Weight 85.1 kg 85.1 kg PHYSICAL EXAMINATION: GENERAL: The patient is alert and oriented x3, not in any acute distress. Well developed, well nourished. HEENT: Pupils are round and equally reacting to light. EOMI. No scleral icterus. No conjunctival pallor. Normocephalic, atraumatic. No pharyngeal erythema. No thyromegaly. CARDIOVASCULAR: S1 and S2 present. No murmurs, rubs, or gallops. PULMONARY: Chest is clear to auscultation, no wheezing or crackles. ABDOMEN: Soft, nontender, nondistended, normoactive bowel sounds. No palpable organomegaly. MUSCULOSKELETAL: No joint swelling or deformity. Defer to the orthopedic surgery EXTREMITIES: No cyanosis, clubbing, or pedal edema. NEUROLOGICAL: Gross neurological examination did not reveal any focal deficits. SKIN: No rashes. 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
[2019-04-14] MEDS: HYDROcodone/APAP 5-325MG 1 EACH TAB PO PRN ×2 (15:11→21:04)
[2019-04-14] MEDS: ENOXAPARIN 30 MG/0.3 ML SYRINGE SQ SCH (20:40)
[2019-04-14] MEDS ORDERED: ANASTROZOLE 1 MG TAB PO SCH (21:00)
[2019-04-14] MEDS ORDERED: SENNOSIDES-DOCUSATE SODIUM 1 EACH TAB PO SCH (21:00)
[2019-04-15] MEDS: HYDROcodone/APAP 5-325MG 1 EACH TAB PO PRN ×3 (02:23→14:23)
[2019-04-15 02:34] VITALS: PULSE 71
[2019-04-15] MEDS ORDERED: LEVOTHYROXINE 100 MCG TAB PO SCH (06:30)
[2019-04-15 07:34] LABS: Basophils % (A) 0 %; Eosinophils # (A) 0.1 k/uL (0-0.7); Eosinophils % (A) 1 %; HCT 35.7 % (34.0-46.0); HGB 11.6 gm/dL (11.4-16.0); Lymphocytes # (A) 2.5 k/uL (1.0-4.8); Lymphocytes % (A) 30 %; MCH 28.9 pg (25.0-35.0); MCHC 32.5 g/dL (31.0-37.0); Mean Platelet Volume 7.3; Monocytes # (A) 0.5 k/uL (0-1.0); Monocytes % (A) 6 %; Neutrophils % (A) 60 %; Platelet Count 207 k/uL (150-450); RBC 4.01 m/uL (3.80-5.40); RDW 12.4 % (11.5-15.5); WBC 8.3 k/uL (3.8-10.6)
[2019-04-15] MEDS: ENOXAPARIN 30 MG/0.3 ML SYRINGE SQ SCH (08:21)
[2019-04-15 08:22] VITALS: BP 124/80; RESP 15; TEMP 98.3
[2019-04-15] MEDS ORDERED: buPROPion SR 100 MG TABLET.ER PO SCH (09:00)
[2019-04-15] MEDS ORDERED: MELOXICAM 7.5 MG TAB PO SCH (09:00)
[2019-04-15] MEDS ORDERED: FAMOTIDINE 20 MG TAB PO SCH (09:00)
[2019-04-15] MEDS: LACTATED RINGERS 1,000 ML IV SCH (10:38)
--- NOTE | 2019-04-15 11:37 | P.PN ---
Subjective Progress Note Date: 04/15/19 Principal diagnosis: - Reason for Consult Recommendations regarding antihypertensive medications - History of Present Illness Patient is admitted for elective left hip arthroplasty, patient will get a was removed patient is clinically doing well after surgery did not pass gas yet. Patient denied any fever chills dysuria cough. 04/15/2019 Patient is seen and evaluated in follow-up today status post left hip arthroplasty with Dr. Clarke. Patient is doing quite well today and has been up and working with physical therapy and tolerating well. Patient states she had some mild burning sensation and discomfort of the left thigh near the surgical site with no increased redness or swelling noted. Surgical dressing is dry and intact. Patient continues to use incentive spirometer and is reaching the 2000. Patient is scheduled to go home today is looking forward to going home. Home medications will be resumed. No reports of chest pain, shortness of breath, or palpitations. Patient is afebrile. No reports of nausea vomiting and patient is tolerating diet. Patient states she is passing gas today and has been up to the bathroom with a walker and tolerating well. Objective - Vital Signs Vital signs: Vital Signs Temp 98.3 F 04/15/19 07:55 Pulse 71 04/15/19 07:55 Resp 15 04/15/19 07:55 BP 124/80 04/15/19 07:55 Pulse Ox 96 04/15/19 07:55 Intake & Output 04/14/19 04/15/19 04/15/19 18:59 06:59 18:59 Intake Total 1301 Output Total 150 Balance 1151 Weight 85.1 kg Intake: IV 1301 Output: Estimated Blood Loss 150 Other: Voiding Method Toilet Toilet # Voids 1 2 - Exam GENERAL: The patient is alert and oriented x3 sitting up in the chair with bilateral legs elevated, not in any acute distress. Well developed, well nourished. HEENT: Pupils are round and equally reacting to light. EOMI. No scleral icterus. No conjunctival pallor. Normocephalic, atraumatic. No pharyngeal erythema. No thyromegaly. CARDIOVASCULAR: S1 and S2 present. No murmurs, rubs, or gallops. PULMONARY: Chest is clear to auscultation, no wheezing or crackles. ABDOMEN: Soft, nontender, non-distended, normoactive bowel sounds. No palpable organomegaly. MUSCULOSKELETAL: No joint swelling or deformity. Defer to the orthopedic surgery EXTREMITIES: No cyanosis, clubbing, or pedal edema. Left anterior hip arthroplasty surgical dressing is dry and intact NEUROLOGICAL: Gross neurological examination did not reveal any focal deficits. SKIN: No rashes. - Labs CBC & Chem 7: 04/15/19 06:35 Assessment and Plan Assessment: -Hypertension: To prevent perioperative hypotension which is expected. 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
--- NOTE | 2019-04-15 12:34 | P.PN ---
Subjective Progress Note Date: 04/15/19 Principal diagnosis: status post direct anterior left total hip arthroplasty Patient doing well at this time, pain is well-controlled. She is ambulating well with physical therapy. She denies chest pain or shortness of breath. Objective - Vital Signs Vital signs: Vital Signs Temp 98.3 F 04/15/19 07:55 Pulse 71 04/15/19 07:55 Resp 15 04/15/19 07:55 BP 124/80 04/15/19 07:55 Pulse Ox 96 04/15/19 07:55 Intake & Output 04/14/19 04/15/19 04/15/19 18:59 06:59 18:59 Intake Total 1301 Output Total 150 Balance 1151 Weight 85.1 kg Intake: IV 1301 Output: Estimated Blood Loss 150 Other: Voiding Method Toilet Toilet # Voids 1 2 - Exam Left lower extremity: Incision is clean, dry, and intact. The opti foam dressing is intact. There is minimal soft tissue swelling and ecchymosis surrounding the medial and lateral aspects of the incision. Calf is soft, no tenderness with palpation. Plantar flexion, dorsiflexion, EHL, FHL are intact. Sensory exam to light touch throughout the extremity is intact, dorsal pedis pulses 2+. - Labs CBC & Chem 7: 04/15/19 06:35 Assessment and Plan Plan: Assessment: Postoperative day #1 status post direct anterior left total hip arthroplasty Plan: Pain control, we'll discharge home on oral [place] 5 mg/325 mg GI and DVT prophylaxis, aspirin 81 mg twice a day Wound care instructions discussed. Silver dressing to be removed at 10 days postop, keep mohan clean and dry. Home physical therapy and nursing Icing and elevating techniques discussed Medical recommendations Plan for discharge home today Time with Patient: Less than 30
--- NOTE | 2019-04-15 12:36 | P.DS ---
Providers Date of admission: 04/14/19 06:14 Expected date of discharge: 04/15/19 Attending physician: Miky Clarke Consults: 04/14/19 09:24 Consult Physician Routine Consulting Provider: Juan Card Consult Reason/Comments: Medical management Do you want consulting provider notified?: Yes Primary care physician: Safia Mccormick [facility] Course: Date of admission: 04/14/2019 Date of discharge: 04/15/2019 Admission diagnosis: Status post direct anterior left total hip arthroplasty Discharge diagnosis: Same Attending physician: Dr. Clarke Surgical procedures: Direct anterior left total hip arthroplasty Brief history: Patient is a 63-year-old female with a history of progressive primary left hip osteoarthritis. At this point patient has failed conservative treatment measures and has opted to proceed with a elective direct anterior left total hip arthroplasty. Hospital course: Details of patient's surgery can be found in operative report. Patient tolerated the procedure well and was subsequently transported to orthopedic floor. Patient's orthopeidc and medical care was provided daily. Patient had daily laboratory tests performed for evaluation of overall blood counts. Patient had daily physical therapy to include strengthening range of motion as well as education with walker ambulation. Patient was treated with Lovenox for their postoperative DVT prophylaxis during their inpatient stay. Patient was noted to have a relatively uneventful postoperative course. Patient reported satisfactory pain control with oral pain medications by postoperative day 0. Patient showed satisfactory progress with physical therapy. Patient moved steadily through the program and had no difficulty meeting the goals by postoperative day 1. Given patient's otherwise satisfactory course and having met physical therapy goals, plan is to discharge patient home on postoperative day 1. Discharge condition/disposition: Patient will be discharged home in stable co ndition. Discharge medications: Instructions are given on resumption of patient's normal daily medications per primary care recommendation, in addition patient will be prescribed [place] 5 mg/325 mg, Colace 100 mg, aspirin 81 mg. Discharge instructions: 1. Wound care and infection precautions, keep incision dry and covered while showering, no lotions, creams, moisturizers. No soaking, tubs, pools, hottubs. Do not scrub over the incision. 2. Weight-bear as tolerated with walker / cane until follow-up. 3. Ice and elevate when necessary. Do not exceed 20 minutes per hour with ice pack. 4. Utilize compression sleeve until seen at first follow up appointment. 5. Visiting nursing care. 6. Home physical therapy. 7. Pain meds and anticoagulants per prescription. 8. Pain medication has potential to cause constipation. Increase oral fluid and fiber intake. Contact primary care provider if you have not had a bowel movement within 48 hours after discharge 9. No anti-inflammatory medication until discussed at first post operative visit, this including Motrin, Aleve, Mobic, Diclofenac. 10. Follow up in office at 2 weeks postop with Pop Duarte PA-C 11. Follow up with your primary care doctor 7-10 days after discharge. 12. Contact [facility] with any questions, . Procedures: Direct anterior left total hip arthroplasty Patient Condition at Discharge: Good Plan - Discharge Summary Discharge Rx Participant: Yes New Discharge Prescriptions: New Aspirin [Adult Low Dose Aspirin EC] 81 mg PO BID #60 tablet. Docusate [Colace] 100 mg PO DAILY #30 capsule Hydrocodone/Acetaminophen [[place] 5-325] 1 - 2 each PO Q6HR PRN #40 tab PRN Reason: Pain Continue buPROPion XL [Wellbutrin XL] 200 mg PO BID Levothyroxine Sodium [Synthroid] 100 mcg PO QAM Acetaminophen Tab [Tylenol] 1,000 mg PO BID PRN #0 PRN Reason: Pain Pseudoephedrine HCl [Sudafed 12 Hour] 120 mg PO HS PRN PRN Reason: Congestion ALPRAZolam [Xanax] 0.25 mg PO BID PRN #30 tablet PRN Reason: Anxiety Zinc 50 mg PO DAILY Melatonin 10 mg PO HS rOPINIRole HCL [Requip] 0.25 mg PO HS Anastrozole [Arimidex] 1 mg PO HS Thiamine [Vitamin B-1] 100 mg PO DAILY Multivitamin [Multivitamins Adult Gummies] 1 each PO DAILY Losartan Potassium [Cozaar] 25 mg PO DAILY Ibuprofen [Motrin Ib] 400 mg PO BID Discharge Medication List Acetaminophen Tab [Tylenol] 1,000 mg PO BID PRN #0 11/11/13 [History] Levothyroxine Sodium [Synthroid] 100 mcg PO QAM 11/11/13 [History] Pseudoephedrine HCl [Sudafed 12 Hour] 120 mg PO HS PRN 11/11/13 [History] buPROPion XL [Wellbutrin XL] 200 mg PO BID 11/11/13 [History] ALPRAZolam [Xanax] 0.25 mg PO BID PRN #30 tablet 11/20/13 [Rx] Melatonin 10 mg PO HS 12/08/15 [History] Zinc 50 mg PO DAILY 12/08/15 [History] Anastrozole [Arimidex] 1 mg PO HS 01/14/18 [History] Ibuprofen [Motrin Ib] 400 mg PO BID 01/14/18 [History] Losartan Potassium [Cozaar] 25 mg PO DAILY 01/14/18 [History] Multivitamin [Multivitamins Adult Gummies] 1 each PO DAILY 01/14/18 [History] Thiamine [Vitamin B-1] 100 mg PO DAILY 01/14/18 [History] rOPINIRole HCL [Requip] 0.25 mg PO HS 01/14/18 [History] Aspirin [Adult Low Dose Aspirin EC] 81 mg PO BID #60 tablet. 04/15/19 [Rx] Docusate [Colace] 100 mg PO DAILY #30 capsule 04/15/19 [Rx] Hydrocodone/Acetaminophen [[place] 5-325] 1 - 2 each PO Q6HR PRN #40 tab 04/15/19 [Rx] Follow up Appointment(s)/Referral(s): Safia Mccormick MD [Primary Care Provider] - 1 Week (Dr. Safia Mccormick has a new office located @ [facility] [facility] (Next to [facility]) Office number . Msg. was left at new office to call you at home with your follow-up appointment date and time. Thank you.) Rojelio Duarte PAC [PHYSICIAN MUCK OPERATOR] - 04/30/19 2:20 pm [facility] [NON-STAFF] - Activity/Diet/Wound Care/Special Instructions: Orthopedic Discharge Instructions: 1. Wound care and infection precautions, keep incision dry and covered while showering, no lotions, creams, moisturizers. No soaking, pools, hot tubs. Do not scrub over incision. 2. Weight-bear as tolerated with walker / cane until follow-up. 3. Ice and elevate when necessary. Do not exceed 20 minutes per hour with ice pack. 4. Utilize compression sleeve until seen at first follow up appointment. 5. Pain meds and anticoagulants per prescription. 6. Pain medication has potential to cause constipation. Increase oral fluid and fiber intake. Contact primary care provider if you have not had a bowel movement within 48 hours after discharge. 7. No anti-inflammatory medication until discussed at first post operative visit, this including Motrin, Aleve, Mobic, Diclofenac. 8. Follow up in office at 2 weeks postop with Pop Duarte PA-C 9. Follow up with your primary care doctor 7-10 days after discharge. 10. Contact [facility] with any questions, . Discharge Disposition: HOME WITH HOME HEALTH SERVICES
== END 2019-04-15 14:53 | disposition home health service (06) | DRG 470 ==
LOC: 2ORMAIN 06:14 → 4SSUR 09:14
PROVIDERS: ADMIT Orthopaedic Surgery; ATTEND Orthopaedic Surgery
PROC: 0SRB04A Replacement of Left Hip Joint with Ceramic on Polyethylene Synthetic Substitute, Uncemented, Open Approach (ICD-10-PCS; principal; 2019-04-14 07:30)
DX: M16.12 Unilateral primary osteoarthritis, left hip (principal); Z96.653 Presence of artificial knee joint, bilateral; I10 Essential (primary) hypertension; G47.30 Sleep apnea, unspecified; E03.9 Hypothyroidism, unspecified; Z79.890 Hormone replacement therapy; Z79.899 Other long term (current) drug therapy; Z82.62 Family history of osteoporosis; Z85.3 Personal history of malignant neoplasm of breast
CPT/HCPCS: 73501; 85025; 86850; 86900; 86901; 88305; 88311

== ENCOUNTER → 2019-08-12 | Outpatient (CLI) | payer BC ==
[2019-08-12 13:18] VITALS: BP 133/80; PULSE 73; TEMP 98.1; BMI 32.5
--- NOTE | 2019-08-12 15:45 | P.BASOAP ---
Subjective Progress Note Date: 08/12/19 Principal diagnosis: Morbid obesity Patient known to our service. Underwent previous sleeve gastrectomy in July 2016. Has had 20 pound weight gain recently. This has been slowly over the last year or so. Still takes her antiacids daily. No GERD symptoms while taking antiacids. No nausea or vomiting. No fevers. Denies pain. Still with good restriction. Objective - Vital Signs Vital signs: Vital Signs Temp 98.1 F 08/12/19 13:12 Pulse 73 08/12/19 13:12 Resp BP 133/80 08/12/19 13:12 Pulse Ox Intake & Output 08/11/19 08/12/19 08/12/19 18:59 06:59 18:59 Weight 86.183 kg - Exam Abdomen: Soft, nondistended, nontender Assessment/Plan (1) Morbid obesity Narrative/Plan: Patient overall doing fairly well. She is starting to increase her activity after her recent hip replacement. Continue dietary and exercise regimen. Follow-up 1 year. We'll check 3 her labs at this time. Continue antiacids. Plan: Date: 08/12/19 Initial Weight: Initial BMI: Current Weight: 86.183 kg Current BMI: 32.5 Type of Surgery: Total Volume in Band: Previous Volume: Volume Removed: Volume Added: Band Size:
[2019-08-12 19:59] LABS: Folate, Serum 20.7 ng/mL
== END | disposition home or self-care (01) ==
LOC: BARWHC3 12:45
PROVIDERS: ATTEND Surgery
DX: E66.01 Morbid (severe) obesity due to excess calories (principal); Z68.32 Body mass index [BMI] 32.0-32.9, adult; K90.89 Other intestinal malabsorption; E55.9 Vitamin D deficiency, unspecified
CPT/HCPCS: 82306; 82607; 82746; 84425; 99211

== ENCOUNTER → 2019-08-19 | Outpatient (CLI) | payer BC ==
--- NOTE | 2019-08-19 08:23 | MM ---
Reason for exam: additional evaluation requested from prior study. Last mammogram was performed 1 year and 2 months ago. History: Patient is postmenopausal, has history of bilateral breast cancer at age 60, and is nulliparous. Family history of breast cancer in maternal aunt at age 43 and breast cancer in paternal grandmother at age 53. Malignant MG pre op needle loc RT of the right breast, December 10, 2015. Malignant MG stereo VAD BX RT of the right breast, October 21, 2015. Lumpectomy of the right breast, 2016. Radiation therapy of the right breast, 2016. Taking other hormone beginning at age 60. Taking unspecified hormones for 1 year beginning at age 49. Physical Findings: Nurse did not find any significant physical abnormalities on exam. MG 3D Diag Mammo W/Cad ELKIN Bilateral CC and MLO view(s) were taken. Prior study comparison: June 28, 2018, bilateral MG 3d diag mammo w/cad ELKIN. July 02, 2017, bilateral MG 3d diag mammo w/cad ELKIN. There are scattered fibroglandular densities. Stable post operative changes right breast are stable. No significant new findings when compared with previous films. These results were verbally communicated with the patient and result sheet given to the patient on 08/19/19. ASSESSMENT: Benign, BI-RAD 2 RECOMMENDATION: Follow-up diagnostic mammogram of both breasts in 1 year.
== END | disposition home or self-care (01) ==
LOC: RADMAMWWP 07:39
PROVIDERS: ATTEND Radiology Radiation Oncology
DX: C50.511 Malignant neoplasm of lower-outer quadrant of right female breast (principal); Z17.0 Estrogen receptor positive status [ER+]; Z98.890 Other specified postprocedural states
CPT/HCPCS: 77062; 77066

== ENCOUNTER → 2020-02-17 | Outpatient (CLI) | payer BC ==
--- NOTE | 2020-02-17 16:37 | BD ---
EXAMINATION TYPE: Axial Bone Density DATE OF EXAM: 02/17/2020 COMPARISON: 02.15.2018 CLINICAL HISTORY: 64 YR OLD FEMALE.....ICD-10 CODE: C50.211 BREAST CANCER, Z79.890 POST MENOPAUSAL Height: 62.5 Weight: 197 FRAX RISK QUESTIONS: NOTHING TO NOTE HERE RISK FACTORS HISTORY OF: Surgery to LT HIP.....THR, MAR 2019 Family History of Osteoporosis: FATHER, NO HIP FX Postmenopausal woman: YES, AT ABOUT AGE 54 YRS OLD Hyperparathyroidism: NO Adrenal Insufficiency: NO MEDICATIONS: Thyroid Medications: YES, SYNTHROID FOR ABOUT 8-10 YRS Additional Medications: HX OF RADIATION, MANDY DEVICE, ARIMIDEX, BP MEDS, XANAX, REFLUX MED, MULTI VITAMIN Additional History: HX OF RT BREAST CANCER 2015, GASTRIC SLEEVE, HYPERTENSION, REFLUX EXAM MEASUREMENTS: Bone mineral densitometry was performed using the [employer] System. Bone mineral density as measured about the Lumbar spine is: ----- L1-L4(G/cm2): 2.063 T Score Values are as follows: ----- L1: 6.6 ----- L2: 7.6 ----- L3: 7.8 ----- L4: 5.9 ----- L1-L4: 7.0 Bone mineral density has: Increased 10.0% SINCE STUDY OF 02.15.2018 Bone mineral density about the R hip (g/cm2): 1.174 T Score values are as follows: -----R Neck: 0.4 -----R Total: 1.3 Bone mineral density has: Decreased -4.1% SINCE STUDY OF 02.15.2018 FRAX%s: THERE IS A 11.3% CHANCE FOR A MAJOR OSTEOPOROTIC FX AND A 0.3% FOR HIP....PROBABILITY FOR F X IN 10 YRS TIME IMPRESSION: Normal (Values between +1 and -1 indicate normal bone mass). Consider repeating this study in 5 year s or sooner if there is some new clinical indication. NOTE: T-SCORE=SD OF THE YOUNG ADULT MEAN.
== END | disposition home or self-care (01) ==
LOC: RADBDWWP 12:31
PROVIDERS: ATTEND Internal Medicine Hematology & Oncology
DX: C50.211 Malignant neoplasm of upper-inner quadrant of right female breast (principal); M85.88 Other specified disorders of bone density and structure, other site; Z79.890 Hormone replacement therapy; Z88.0 Allergy status to penicillin; Z88.2 Allergy status to sulfonamides
CPT/HCPCS: 77080

== ENCOUNTER → 2020-03-11 | Outpatient (CLI) | payer OTHER ==
--- NOTE | 2020-03-11 20:54 | SFUN ---
SLEEP CENTER FOLLOW UP NOTE DATE OF SERVICE: 03/11/2020 This is a 64-year-old lady who has been followed in Sleep Center for treatment of obstructive sleep apnea-hypopnea syndrome. Patient continues to use her CPAP equipment every night. No significant problems related to mask fitting, pressure or humidification. [place] Sleepiness Scale today is 13. I checked her CPAP unit. Pressure is 8 cm of water. Usage is 30/30 nights, and 27/30 nights for more than 4 hours. Leak is 17 L/minute, which is borderline. Apnea- hypopnea index is 5.4. MEDICATIONS: 1. Synthroid 100 mcg once a day. 2. Wellbutrin 200 mg twice a day. 3. Losartan 25 mg once a day. 4. Arimidex 1 mg once a day. 5. Requip 0.25 mg two times a day. 6. Cozaar 20 mg once a day. 7. Prevacid 20 mg once a day. 8. Melatonin 10 mg at bedtime. 9. Zinc supplement. 10.Xanax 0.25 mg up to 2 times a day. PHYSICAL EXAMINATION: GENERAL: A pleasant patient in no distress. VITAL SIGNS: BP 144/83, HR 74, RR 12. Height 5 feet 4-1/2 inches, weight 202, BMI 34.6, temperature 98.2, oxygen saturation at room air 98%. HEENT: PERRLA, EOMI. Evaluation of oropharynx showed tongue protrudes midline. Low position of soft palate. Mallampati III. NECK: Supple. No JVD. Thyroid is not palpable. LUNGS: Clear to percussion and to auscultation. Good air exchange. No wheezing or rhonchi. HEART: S1, S2 regular. No murmurs, gallops or rubs. ABDOMEN: Soft and nontender. Bowel sounds are present. No organomegaly appreciated. EXTREMITIES: No clubbing or cyanosis. VOTATOR MACHINE OPERATOR: Awake, alert, and oriented X3. Cranial nerves 2 to 7 intact. There is no fasciculation or atrophy. noted. No focal deficits observed. IMPRESSION: 1. Obstructive sleep apnea-hypopnea syndrome. The patient demonstrated great compliance with treatment, benefitting from treatment. Slight increasing apnea- hypopnea index. 2. Obesity. Patient's weight increased by 13 pounds. 3. Depression. 4. Hypertension. 5. Status post tonsillectomy. 6. Status post surgical treatment for nasal septum deviation. 7. Hypothyroidism. 8. History of anxiety. 9. History of acid reflux. 10.Allergies. 11.Status post surgical and radiation treatment for right breast carcinoma about 4 years ago. PLAN: 1. I increased pressure in CPAP unit to 9 cm of water. 2. Patient will continue to use PAP equipment every night for the whole night. 3. Sleep hygiene with regular time in bed for at least 7-1/2 to 8 hours. 4. Precautions related to driving. No driving if feeling sleepiness. 5. I will maintain all necessary prescription for PAP supplies including mask, tube, filters. 6. Watching weight. 7. No driving if feeling sleepiness. 8. Follow-up visit in 6 months or earlier if patient has any problems. Thank you very much for allowing me to participate in the management of your patient. Sincerely, Guillermo Arriaga MD, PhD, FAASM Diplomat of [place] [employer] [place] [employer] Doughnut Dough Mixer of [facility] [place] MMODL / IJN: [id number] /
== END | disposition home or self-care (01) ==
LOC: SLEEP 13:02
PROVIDERS: ATTEND Internal Medicine
DX: G47.33 Obstructive sleep apnea (adult) (pediatric) (principal); E66.9 Obesity, unspecified; I10 Essential (primary) hypertension; E03.9 Hypothyroidism, unspecified; Z98.890 Other specified postprocedural states; Z90.09 Acquired absence of other part of head and neck; Z87.19 Personal history of other diseases of the digestive system; Z85.3 Personal history of malignant neoplasm of breast; F32.9 Major depressive disorder, single episode, unspecified; Z99.89 Dependence on other enabling machines and devices; Z79.890 Hormone replacement therapy; Z79.899 Other long term (current) drug therapy; Z79.891 Long term (current) use of opiate analgesic

== ENCOUNTER → 2020-08-19 | Outpatient (CLI) | payer OTHER ==
--- NOTE | 2020-08-20 10:26 | MM ---
Reason for exam: additional evaluation requested from prior study. Last mammogram was performed 1 year ago. History: Patient is postmenopausal, has history of bilateral breast cancer at age 60, and is nulliparous. Family history of breast cancer in maternal aunt at age 43, breast cancer in sister at age 67, breast cancer in mother at age 80, and breast cancer in paternal grandmother at age 53. Malignant MG pre op needle loc RT of the right breast, December 10, 2015. Malignant MG stereo VAD BX RT of the right breast, October 21, 2015. Lumpectomy of the right breast, 2016. Radiation therapy of the right breast, 2016. Taking antineoplastic for 5 years beginning at age 60. Taking unspecified hormones for 1 year beginning at age 49. Physical Findings: Nurse did not find any significant physical abnormalities on exam. MG 3D Diag Mammo W/Cad ELKIN Bilateral CC and MLO view(s) were taken. Prior study comparison: August 19, 2019, bilateral MG 3d diag mammo w/cad ELKIN. June 28, 2018, bilateral MG 3d diag mammo w/cad ELKIN. July 02, 2017, bilateral MG 3d diag mammo w/cad ELKIN. June 27, 2016, bilateral MG 3d diag mammo w/cad ELKIN. October 12, 2015, bilateral MG 3d screening mammo w/cad. There are scattered fibroglandular densities. Post surgical and post therapy change right breast. Nodular asymmetry anterior lateral right breast is more defined and incompletely disperses on additional views. No significant new findings when compared with previous films. These results were verbally communicated with the patient and result sheet given to the patient on 08/19/20. ASSESSMENT: Incomplete: need additional imaging evaluation, BI-RAD 0 RECOMMENDATION: Ultrasound of the right breast. (8-12 o'clock)
--- NOTE | 2020-08-20 10:29 | USB ---
Reason for exam: additional evaluation requested from abnormal screening. History: Patient is postmenopausal, has history of bilateral breast cancer at age 60, and is nulliparous. Family history of breast cancer in maternal aunt at age 43, breast cancer in sister at age 67, breast cancer in mother at age 80, and breast cancer in paternal grandmother at age 53. Malignant MG pre op needle loc RT of the right breast, December 10, 2015. Malignant MG stereo VAD BX RT of the right breast, October 21, 2015. Lumpectomy of the right breast, 2016. Radiation therapy of the right breast, 2016. Taking antineoplastic for 5 years beginning at age 60. Taking unspecified hormones for 1 year beginning at age 49. US Breast Limited BILAT Technologist: Maggie Condon Right limited breast ultrasound including focal area of concern, retroareolar and axilla demonstrates a 1.7 x 1.1 x 0.6cm lesion at 9 o'clock, this is very vague and has the appearance of a dense island of tissue, probably corresponding to the mammographic finding and a 1.0 x 0.9 x 1.4cm hypoechoic lesion at the nipple. Patient has bilateral nipple inversion and the c/c side appears fairly similar. Precautionary 6 month follow up recommended. Scanned 8-10 o'clock. These results were verbally communicated with the patient and result sheet given to the patient on 08/19/20. ASSESSMENT: Probably benign, BI-RAD 3 RECOMMENDATION: Follow-up diagnostic mammogram and ultrasound of the right breast in 6 months.
== END | disposition home or self-care (01) ==
LOC: RADMAMWWP 10:16
PROVIDERS: ATTEND Radiology Radiation Oncology
DX: C50.511 Malignant neoplasm of lower-outer quadrant of right female breast (principal); R92.8 Other abnormal and inconclusive findings on diagnostic imaging of breast; Z17.0 Estrogen receptor positive status [ER+]; Z98.890 Other specified postprocedural states
CPT/HCPCS: 77062; 77066

== ENCOUNTER → 2020-09-23 | Outpatient (CLI) | payer OTHER ==
--- NOTE | 2020-09-24 07:29 | SFUN ---
SLEEP CENTER FOLLOW UP NOTE DATE OF SERVICE: 09/23/2020 65-year-old lady has been followed in Sleep Center for treatment of obstructive sleep apnea-hypopnea syndrome. Patient continued to use her CPAP equipment every night. No snoring with the machine. No significant problems related to getting any CPAP supplies. Recently feels that her nasal mask does not fit well. [place] Sleepiness Scale today is 9, which is in normal range. I checked her CPAP unit. CPAP pressure is 9 cm of water. Usage is 30/30 nights and 23/30 nights for more than 4 hours, average 4.9 hours per night. Sometimes patients fell asleep in front of the TV in the evenings without CPAP. Leak is 22 L/minutes which is borderline. Apnea-hypopnea index is only 1.1, which is totally normal. MEDICATIONS: Synthroid 100 mcg once a day. Wellbutrin 200 mg twice a day. Losartan 25 mg once a day. Arimidex 1 mg once a day. Requip 0.25 mg twice a day, Prozac 20 mg once a day. Cozaar 20 mg once a day. Prilosec 20 mg once a day, Xanax 0.25 mg as needed for anxiety. PHYSICAL EXAMINATION: Patient in no distress. BP 123/75, HR 68, RR 16, height 5 feet 4 inches, weight 211.6 pounds with a body mass index 36.2. The patient increased weight on 9 pounds, temperature 97.1, oxygen saturation at room air 96%. Oropharynx: Low position of soft palate. Mallampati 3. NECK: Supple, no JVD. Thyroid is not palpable. LUNGS: Clear to percussion and to auscultation. Good air exchange. No wheezing or rhonchi. HEART: S1, S2 regular. No murmurs, gallops, or rubs. ABDOMEN: Obese. Soft and nontender. Bowel sounds are present. No organomegaly appreciated. EXTREMITIES: No clubbing or cyanosis. INVOICE CLERK: Awake, alert, and oriented X3. Cranial nerves 2 to 7 intact. There is no fasciculation or atrophy. noted. No focal deficits observed. IMPRESSION: 1. Obstructive sleep apnea-hypopnea syndrome. Patient demonstrated great compliance with treatment, benefitting from treatment normal apnea-hypopnea index since I increased the pressure during the previous visit. 2. Obesity, patient increased weight 9 pounds since previous visit. 3. Depression. 4. Hypertension. 5. Status post tonsillectomy. 6. Status post surgical treatment for nasal septum deviation. 7. Hypothyroidism. 8. History of anxiety. 9. History of acid reflux. 10.Allergies. 11.Status post surgical and radiation treatment for right breast CA about 4-1/2 years ago. PLAN: 1. Patient will continue to use PAP equipment every night for the whole night. 2. Sleep hygiene with regular time in bed for at least 7-1/2 to 8 hours. 3. Precautions related to driving. No driving if feeling sleepiness. 4. I will maintain all necessary prescription for PAP supplies including mask, tube, filters. 5. Watching weight. 6. Follow-up visit in 6 months or earlier if patient has any problems. Thank you very much for allowing me to participate in management of your patient. Sincerely, Guillermo Arriaga MD, PhD, FAASM Diplomat of [employer] Sleep Medicine Board of [place] [employer] Medicine Chemical Etching Processor of [facility] [place] MMODL / CASSIDYN: [id number] /
== END | disposition home or self-care (01) ==
LOC: SLEEP 13:42
PROVIDERS: ATTEND Internal Medicine
DX: Z53.9 Procedure and treatment not carried out, unspecified reason (principal)

== ENCOUNTER → 2021-03-18 | Outpatient (CLI) | payer OTHER ==
--- NOTE | 2021-03-18 11:25 | MM ---
Reason for exam: follow-up at short interval from prior study. Last mammogram was performed 7 months ago. History: Patient is postmenopausal, has history of bilateral breast cancer at age 60, and is nulliparous. Family history of breast cancer in maternal aunt at age 43, breast cancer in sister at age 67, breast cancer in mother at age 80, and breast cancer in paternal grandmother at age 53. Malignant MG pre op needle loc RT of the right breast, December 10, 2015. Malignant MG stereo VAD BX RT of the right breast, October 21, 2015. Lumpectomy of the right breast, 2016. Radiation therapy of the right breast, 2016. Taking antineoplastic for 5 years beginning at age 60. Taking unspecified hormones for 1 year beginning at age 49. Physical Findings: Nurse did not find any significant physical abnormalities on exam. MG 3D Diag Mammo W/Cad RT CC, MLO, and XCCL view(s) were taken of the right breast. Prior study comparison: August 19, 2020, bilateral MG 3d diag mammo w/cad ELKIN. August 19, 2019, bilateral MG 3d diag mammo w/cad ELKIN. Post surgical changes right breast. Slight increase in lymph node size on right. Recent left covid booster. No significant new findings when compared with previous films. These results were verbally communicated with the patient and result sheet given to the patient on 03/18/21. ASSESSMENT: Probably benign, BI-RAD 3 RECOMMENDATION: Ultrasound of the right breast in 6 months.
--- NOTE | 2021-03-18 11:27 | USB ---
Reason for exam: follow-up at short interval from prior study. History: Patient is postmenopausal, has history of bilateral breast cancer at age 60, and is nulliparous. Family history of breast cancer in maternal aunt at age 43, breast cancer in sister at age 67, breast cancer in mother at age 80, and breast cancer in paternal grandmother at age 53. Malignant MG pre op needle loc RT of the right breast, December 10, 2015. Malignant MG stereo VAD BX RT of the right breast, October 21, 2015. Lumpectomy of the right breast, 2016. Radiation therapy of the right breast, 2016. Taking antineoplastic for 5 years beginning at age 60. Taking unspecified hormones for 1 year beginning at age 49. US Breast Limited RT Right limited breast ultrasound including focal area of concern, retroareolar and axilla demonstrates a 1.6 x 0.6 x 0.7cm lesion at 9 o'clock, smaller than previous and a 0.8cm lesion at the posterior nipple, smaller than previous. These results were verbally communicated with the patient and result sheet given to the patient on 03/18/21. ASSESSMENT: Probably benign, BI-RAD 3 RECOMMENDATION: Ultrasound of the right breast in 6 months.
== END | disposition home or self-care (01) ==
LOC: RADUSWWP 09:43
PROVIDERS: ATTEND Radiology Radiation Oncology
DX: C50.511 Malignant neoplasm of lower-outer quadrant of right female breast (principal)
CPT/HCPCS: 77061; 77065

== ENCOUNTER → 2021-09-08 | Outpatient (CLI) | payer MEDICARE, OTHER ==
--- NOTE | 2021-09-08 10:42 | P.PN ---
Subjective DATE: [] FOLLOW UP VISIT. Patient with obstructive sleep apnea hypopnea syndrome return to sleep center for follow-up visit. Information from previous visit have been reviewed. Patient is using PAP equipment every night for the whole night, getting PAP supplies in time. The patient does not have significant problems with the mask, PAP unit and humidification. I checked PAP unit. Air filter needs to be replaced PAP unit pressure 9 cm H2O. Usage is 90 % for more then 4 hours, average 5 hours per night. Leak is 6 l/m, which is in acceptable range. Apnea Hypopnea Index is 3.4, which is normal, but increased comparing with the previous time when it was 1.1. Patient increased to wait on 15 pounds since previous visit. MEDICATIONS:1. Synthroid 100 g once a day 2. Wellbutrin 200 mg twice a day 3. Losartan 25 mg once a day 4. Ropinirole 0.25 mg 1-2 tablets at bedtime 5. Prozac 30 mg once a day 6. Prilosec 20 mg once a day 7. Zyrtec 10 mg once a day 8. Motrin 200 mg as needed 9. Xanax 0.25 mg 1-2 times per day as needed During physical exam: GENERAL: A pleasant patient without any distress. VITAL SIGNS: BP 139/73, HR 71, RR 16 , weight to 26.2, temperature 98.3, oxygen saturation at room air 98 % . HEENT: PERRLA, EOMI.low position of soft palate, Mallapati 3 . NECK: Supple. No JVD. LUNGS: Clear to percussion and to auscultation. Good air exchange. No wheezing or rhonchi. HEART: S1, S2 regular. ABDOMEN: Soft and nontender. Obese EXTREMITIES: No clubbing or cyanosis. MACHINE CUTTER: Awake, alert, and oriented x3. No focal deficit. Impressions: 1. Obstructive sleep apnea-hypopnea syndrome. Patient demonstrated great compliance with treatment, benefiting from treatment. 2. Obesity. 3. Hypertension . 4. [].depression 5. [].history of anxiety 6. Hypothyroidism . 7. Acid reflux. 8. ALLERGIES. 9. History of R breast CA status post surgical and radiation therapy. 10 history of acid reflux Plan: 1. Continue using PAP equipment every night for the whole night. I increased CPAP pressure up to 10 cm of water. 2. To change air filter at least 1-2 times per month. 3. PAP unit should stay lower then position of the head. 4. Advised patient to remove all remaining water from humidifier canister daily and make it dry after each usage. Refill canister with fresh distilled water be fore each usage. 5. Sleep hygiene with regular time in bed for at least 8 hours. 6. Precautions related to driving. No driving if feel any sleepiness. 7. I will maintain prescription for PAP supplies including mask, tube, filters. 8. Follow up visit in 6 months or earlier if patient has any problems. 9. Watching weight. Thank you very much for allowing me to participate in the management of your patient. Guillermo Arriaga MD, PhD, FAASM. Diplomat of [place] [employer], Sleep Medicine Board by [place] [employer] Assembly Instructions Writer of [facility] [place]
== END ==
LOC: SLEEP 09:57
PROVIDERS: ATTEND Internal Medicine
DX: G47.33 Obstructive sleep apnea (adult) (pediatric) (principal); E66.9 Obesity, unspecified; I10 Essential (primary) hypertension; F32.A Depression, unspecified; F41.9 Anxiety disorder, unspecified; E03.9 Hypothyroidism, unspecified; K21.9 Gastro-esophageal reflux disease without esophagitis; T78.40XA Allergy, unspecified, initial encounter; Z85.3 Personal history of malignant neoplasm of breast; Z98.890 Other specified postprocedural states; Z99.89 Dependence on other enabling machines and devices; Z79.890 Hormone replacement therapy; Z88.1 Allergy status to other antibiotic agents; Z88.2 Allergy status to sulfonamides

== ENCOUNTER → 2021-09-20 | Outpatient (CLI) | payer MEDICARE ==
[2021-09-20 13:25] VITALS: BP 144/78; PULSE 77; TEMP 98.1; BMI 37.8
--- NOTE | 2021-09-20 14:12 | P.BASOAP ---
Subjective Progress Note Date: 09/20/21 Principal diagnosis: Morbid obesity Patient returns for evaluation. She was last seen 2 years ago. Unfortunately patient started preoperatively with a weight of 310. She was down to her lowest weight of 170. 2 years ago her weight was 190. Currently weight 220. Says she did have development of multiple bad habits with sweets and carbs. Was drinking sweetened tea and lemonade. Recently made some better changes at home and remove some of these food items. Would like to be seen by dietary. Takes antiacids daily. No heartburn. She does have 1-2 episodes of vomiting weekly which is new over the last 6-7 months. Still only able to eat small amounts at one sitting. She is due for lab work. Objective - Vital Signs Vital signs: Vital Signs Temp 98.1 F 09/20/21 13:16 Pulse 77 09/20/21 13:16 Resp BP 144/78 09/20/21 13:16 Pulse Ox FiO2 Intake & Output 09/19/21 09/20/21 09/20/21 18:59 06:59 18:59 Weight 99.79 kg - Exam Abdomen: Soft, nontender, nondistended Assessment/Plan (1) Morbid obesity Narrative/Plan: 66-year-old female has had some recent weight gain since her last visit 2 years ago. Patient had developed some bad habits that she blames on Covid. Says her lifestyle has improved recently. She has made better choices at home with the food that she keeps in the house. She is increasing her activities. Will be seen by dietary today. Check annual lab work today. Omit CBC and CMP since these were recently checked by her primary care physician. Follow-up 2 months. If vomiting continues we'll proceed with upper endoscopy. Plan: Date: 09/20/21 Initial Weight: Initial BMI: Current Weight: 99.79 kg Current BMI: 37.8 Type of Surgery: Total Volume in Band: Previous Volume: Volume Removed: Volume Added: Band Size:
[2021-09-22 06:50] LABS: Vit B1(Thiamine) 70 ug/L (38-122)
== END | disposition home or self-care (01) ==
LOC: BARWHC3 12:59
PROVIDERS: ATTEND Surgery
DX: E66.01 Morbid (severe) obesity due to excess calories (principal); Z68.37 Body mass index [BMI] 37.0-37.9, adult
CPT/HCPCS: 84425; 82607; 82746; 83540; 84590; 82306; 97802; G0463; 99211

== ENCOUNTER → 2021-11-22 | Outpatient (CLI) | payer MEDICARE ==
[2021-11-22 13:27] VITALS: BP 140/64; PULSE 69; RESP 16; TEMP 99.7; BMI 35.9
--- NOTE | 2021-11-22 13:46 | P.BASOAP ---
Subjective Progress Note Date: 11/22/21 Principal diagnosis: Morbid obesity Patient returns for recheck. She was last seen 2 months ago. Doing well since her last visit. Her labs looked good from last visit. She is having more pain in the foot and ankle region. She was seen by a fire supervisor. She is using topical NSAID on the foot and ankle with some improvement. She is taking 400 mg Motrin twice a day currently. Only has about 1 episode of vomiting weekly. She says it is much improved. No heartburn. No GERD. She has had 11 pound weight loss since last visit. She was seen by dietitian. Objective - Vital Signs Vital signs: Vital Signs Temp 99.7 F H 11/22/21 13:23 Pulse 69 11/22/21 13:23 Resp 16 11/22/21 13:23 BP 140/64 11/22/21 13:23 Pulse Ox FiO2 Intake & Output 11/21/21 11/22/21 11/22/21 18:59 06:59 18:59 Weight 94.801 kg - Exam Abdomen: Soft, nontender, nondistended Assessment/Plan (1) Morbid obesity Narrative/Plan: Patient doing well at this time. Continue dietary and exercise regimen. May increase to 600 mg Motrin gel caps twice a day. Await new appointment with podiatry. Follow-up in February. Plan: Date: 11/22/21 Initial Weight: 140.614 kg Initial BMI: 53.1 Current Weight: 94.801 kg Current BMI: 35.9 Type of Surgery: Vertical Sleeve Gastrectomy Total Volume in Band: Previous Volume: Volume Removed: Volume Added: Band Size:
== END | disposition home or self-care (01) ==
LOC: BARWHC3 13:00
PROVIDERS: ATTEND Surgery
DX: E66.01 Morbid (severe) obesity due to excess calories (principal); Z68.35 Body mass index [BMI] 35.0-35.9, adult
CPT/HCPCS: 99211

== ENCOUNTER → 2021-11-28 | Outpatient (CLI) | payer MEDICARE ==
--- NOTE | 2021-11-28 11:54 | MM ---
Reason for Exam: Follow-up at short interval from prior study. Last mammogram was performed 1 year(s) and 3 month(s) ago. Patient History: Menarche at age 11. Patient has no children. Postmenopausal. Breast cancer, age 60. Currently using Unspecified Hormone, beginning at age 49 for 1 year. 2016, Lumpectomy on the Right side. 12/10/2015, Malignant Core Biopsy on the right side. 10/21/2015, Malignant Core Biopsy on the right side. 2016, Radiation Therapy on the right side. Paternal grandmother had breast cancer, age 53. Maternal aunt had breast cancer, age 43. Sister had breast cancer, age 67. Mother had breast cancer, age 80. Prior Study Comparison: 12/04/1994 Screening Mammogram, Unknown. 08/19/2019 Bilateral Diagnostic Mammogram, [facility]. 08/19/2020 Bilateral Diagnostic Mammogram, [facility]. 08/19/2020 Bilateral Diagnostic Ultrasound, [facility]. 03/18/2021 Right Diagnostic Ultrasound, [facility]. 03/18/2021 Right Diagnostic Mammogram, [facility]. Tissue Density: There are scattered fibroglandular densities. Findings: Analyzed By CAD. Postsurgical changes of the right breast. Stable chronic nodularity within both breasts. No new worrisome calcifications within either breast. No significant change from prior exams. Overall Assessment: Benign, BI-RAD 2 Management: Screening Mammogram of both breasts in 1 year. A clinical breast exam by your physician is recommended on an annual basis and results should be correlated with mammographic findings. This exam should not preclude additional follow-up of suspicious palpable abnormalities. Results were given to the patient verbally at the time of exam. Electronically signed and approved by: Freddy Mondragon D.O.
== END | disposition home or self-care (01) ==
LOC: RADMAMWWP 10:21
PROVIDERS: ATTEND Internal Medicine Hematology & Oncology
DX: Z85.3 Personal history of malignant neoplasm of breast (principal)
CPT/HCPCS: 77066; G0279; 77062

== ENCOUNTER → 2022-02-28 | Outpatient (CLI) | payer MEDICARE ==
[2022-02-28 13:41] VITALS: BP 127/80; PULSE 67; RESP 16; TEMP 98; BMI 34.3
--- NOTE | 2022-02-28 17:07 | P.BASOAP ---
Subjective Progress Note Date: 02/28/22 Principal diagnosis: Morbid obesity Patient returns for recheck. Last seen in November. Her foot pain is improved. She is now taking 400 mg in the morning of Motrin and 200 mg later in the day. She has lost 9 pounds and is exercising more regularly. She is being very careful what she is eating. Objective - Vital Signs Vital signs: Vital Signs Temp 98 F 02/28/22 13:38 Pulse 67 02/28/22 13:38 Resp 16 02/28/22 13:38 BP 127/80 02/28/22 13:38 Pulse Ox FiO2 Intake & Output 02/27/22 02/28/22 02/28/22 18:59 06:59 18:59 Weight 90.718 kg - Exam Abdomen: Soft, nontender, nondistended Assessment/Plan (1) Morbid obesity Narrative/Plan: Overall patient doing well. Foot pain seems to be improving. Continue small amounts of Motrin for the pain. Continue exercising. Follow-up 6 months. We'll check annual labs at that time. Plan: Date: 02/28/22 Initial Weight: 140.614 kg Initial BMI: 53.1 Current Weight: 90.718 kg Current BMI: 34.3 Type of Surgery: Vertical Sleeve Gastrectomy Total Volume in Band: Previous Volume: Volume Removed: Volume Added: Band Size:
== END ==
LOC: BARWHC3 13:26
PROVIDERS: ATTEND Surgery
DX: E66.01 Morbid (severe) obesity due to excess calories (principal); Z68.34 Body mass index [BMI] 34.0-34.9, adult; Z88.0 Allergy status to penicillin; Z88.2 Allergy status to sulfonamides
CPT/HCPCS: 99211

== ENCOUNTER → 2022-03-16 | Outpatient (CLI) | payer BC, MEDICARE ==
--- NOTE | 2022-03-16 17:23 | P.PN ---
Subjective DATE: 03/16/2022 FOLLOW UP VISIT. Patient with obstructive sleep apnea hypopnea syndrome return to sleep center for follow-up visit. Information from previous visit have been reviewed. Patient is using PAP equipment every night for the whole night, getting PAP supplies in time. The patient does not have significant problems with the mask, PAP unit and humidification. [place] sleepiness scale is increased to 13. I checked information from PAP unit. PAP unit pressure 10 cm H2O. Usage is 100% and 75 % for more then 4 hours, average 4.6 hours per night. Leak is 18 l/m, which is in acceptable range. Apnea Hypopnea Index is 1.3, which is normal. MEDICATIONS:1. Levothyroxine 100 g once a day 2. Wellbutrin 200 mg twice a day 3. Losartan 25 mg once a day 4. Ropinirole 0.25 mg once a day 5. Prozac 30 mg once a day 6. Omeprazole 20 mg once a day 7. Cetirizine 10 mg once a day 8. Xanax 0.25 mg up to 2 to times per day as needed During physical exam: GENERAL: A pleasant patient without any distress. VITAL SIGNS: BP 145/78, HR 68, RR 16 , weight 203.2, temperature 97.4, oxygen saturation at room air 95 % . HEENT: PERRLA, EOMI.low position of soft palate, Mallapati 3 . NECK: Supple. No JVD. LUNGS: Clear to percussion and to auscultation. Good air exchange. No wheezing or rhonchi. HEART: S1, S2 regular. ABDOMEN: Soft and nontender. Slightly obese EXTREMITIES: No clubbing or cyanosis. BRUSH LOADER AND HANDLE ATTACHER: Awake, alert, and oriented x3. No focal deficit. Impressions: 1. Obstructive sleep apnea-hypopnea syndrome. Patient demonstrated great compliance with treatment, benefiting from treatment. 2. Obesity, patient lost about 23 pounds since previous visit. 3. History of anxiety. 4. History of depression. 5. Hypertension. 6. Hypothyroidism. 7. ALLERGIES. 8. History of acid reflux. 9. History of right breast cancer, status post surgical and radiation treatment. Plan: 1. Continue using PAP equipment every night for the whole night. 2. To change air filter at least 1-2 times per month. 3. PAP unit should stay lower then position of the head. 4. Advised patient to remove all remaining water from humidifier canister daily and make it dry after each usage. Refill canister with fresh distilled water before each usage. 5. Sleep hygiene with regular time in bed for at least 8 hours. 6. Precautions related to driving. No driving if feel any sleepiness. 7. I will maintain prescription for PAP supplies including mask, tube, filters. 8. Watching and continue losing weight. 9. Follow up visit in 6 months or earlier if patient has any problems. Thank you very much for allowing me to participate in the management of your patient. Guillermo Arriaga MD, PhD, FAASM. Diplomat of [employer] [employer], Sleep Medicine Board by [employer] Foreign Service Teacher of [facility] [place]
== END ==
LOC: SLEEP 16:23
PROVIDERS: ATTEND Internal Medicine
DX: G47.33 Obstructive sleep apnea (adult) (pediatric) (principal); E66.9 Obesity, unspecified; I10 Essential (primary) hypertension; E03.9 Hypothyroidism, unspecified; Z99.89 Dependence on other enabling machines and devices; Z85.3 Personal history of malignant neoplasm of breast; Z79.890 Hormone replacement therapy; Z88.0 Allergy status to penicillin; Z88.2 Allergy status to sulfonamides; F41.9 Anxiety disorder, unspecified; F32.A Depression, unspecified; K21.9 Gastro-esophageal reflux disease without esophagitis
CPT/HCPCS: 99212

== ENCOUNTER → 2022-08-01 | Outpatient (CLI) | payer MEDICARE ==
[2022-08-01 13:52] VITALS: BP 146/74; PULSE 68; RESP 16; TEMP 98.1; BMI 35.6
--- NOTE | 2022-08-01 14:10 | P.BASOAP ---
Subjective Progress Note Date: 08/01/22 Principal diagnosis: morbid obesity patient returns for recheck. She was last seen in February. Her foot pain is about the same. Her father a week or 2 ago. She has gained 8 pounds since her last visit. No GERD symptoms. Has episodes of dysphagia with vomiting approximately once per month. She is due for annual blood work. Objective - Vital Signs Vital signs: Vital Signs Temp 98.1 F 08/01/22 13:50 Pulse 68 08/01/22 13:50 Resp 16 08/01/22 13:50 BP 146/74 08/01/22 13:50 Pulse Ox FiO2 Intake & Output 07/31/22 08/01/22 08/01/22 18:59 06:59 18:59 Weight 94.347 kg - Exam Abdomen: Soft, nontender, nondistended Assessment/Plan (1) Morbid obesity Narrative/Plan: patient doing well at this time. Will check 6 month labs at this time. Continue dietary and exercise regimen. Recheck 6 months. Plan: Date: 08/01/22 Initial Weight: 140.614 kg Initial BMI: 53.1 Current Weight: 94.347 kg Current BMI: 35.6 Type of Surgery: Vertical Sleeve Gastrectomy Total Volume in Band: Previous Volume: Volume Removed: Volume Added: Band Size:
== END ==
LOC: BARWHC3 13:33
PROVIDERS: ATTEND Surgery
DX: E66.01 Morbid (severe) obesity due to excess calories (principal); Z68.35 Body mass index [BMI] 35.0-35.9, adult; Z71.3 Dietary counseling and surveillance; Z88.2 Allergy status to sulfonamides; Z88.0 Allergy status to penicillin
CPT/HCPCS: 99211

== ENCOUNTER → 2022-08-03 | Outpatient (CLI) | payer MEDICARE ==
[2022-08-03 16:22] LABS: Basophils # (A) 0.09 X 10*3/uL (0.00-0.10); Basophils % (A) 1.6 %; Eosinophils # (A) 0.21 X 10*3/uL (0.04-0.35); Eosinophils % (A) 3.7 %; HCT 40.2 % (37.2-46.3); HGB 12.2 d/dL (12.0-15.0); Lymphocytes % (A) 33.8 %; MCHC 30.3 d/dL (32.0-37.0); MCV 88.9 FL (80.0-97.0); Mean Platelet Volume 9.8 FL (9.5-12.2); Monocytes # (A) 0.57 X 10*3/uL (0.20-1.00); Monocytes % (A) 10.1 %; NRBC Per 100 WBC 0 X 10*3/uL (0.00-0.01); Neutrophils # (A) 2.83 X 10*3/uL (1.80-7.70); Neutrophils % (A) 50.4 %; Platelet Count 275 X 10*3/uL (140-440); RBC 4.52 X 10*6/uL (4.10-5.20); RDW 15.2 % (11.5-14.5); WBC 5.62 X 10*3/uL (4.50-10.00)
[2022-08-03 16:38] LABS: ALT 37 U/L (8-44); AST 29 U/L (13-35); Albumin 4.2 d/dL (3.8-4.9); Albumin/Globulin Ratio 1.68 Ratio (1.60-3.17); Alkaline Phosphatase 90 U/L (41-126); BUN/Creat Ratio 19.14 Ratio (12.00-20.00); Blood Urea Nitrogen 13.4 mg/dL (9.0-27.0); Calcium 9.4 mg/dL (8.7-10.3); Carbon Dioxide 26.8 mmol/L (21.6-31.8); Chloride 104 mmol/L (96-109); Chol/HDL Ratio 2.47 Ratio; Globulin 2.5 d/dL (1.6-3.3); Glucose 71 mg/dL (70-110); Iron 63 UG/DL (50-170); Potassium 4.6 mmol/L (3.5-5.5); Sodium 141 mmol/L (135-145); Total Bilirubin 0.2 mg/dL (0.3-1.2); Total Protein 6.7 d/dL (6.2-8.2); VLDL Calculation 12.94 mg/dL (5.00-40.00)
== END | disposition home or self-care (01) ==
LOC: LABWHC1 08:30
PROVIDERS: ATTEND Surgery
DX: Z13.220 Encounter for screening for lipoid disorders (principal); I10 Essential (primary) hypertension; E55.9 Vitamin D deficiency, unspecified; E03.9 Hypothyroidism, unspecified; K90.89 Other intestinal malabsorption
CPT/HCPCS: 36415; 80053; 80061; 82306; 82607; 82746; 83540; 84425; 84443; 85025

== ENCOUNTER → 2022-10-12 | Outpatient (CLI) | payer MEDICARE ==
--- NOTE | 2022-10-12 17:56 | P.PN ---
Subjective DATE: 10/12/2022 FOLLOW UP VISIT. Patient with obstructive sleep apnea hypopnea syndrome return to sleep center for follow-up visit. Information from previous visit have been reviewed. Patient is using PAP equipment every night for the whole night, getting PAP supplies in time. The patient does not have significant problems with the mask, PAP unit and humidification. [place] sleepiness scale is slightly increased to 13. I checked information from PAP unit. PAP unit pressure 10 cm H2O. Usage is 100 % for more then 4 hours, average 5.3 hours per night. Leak is 12 l/m, which is in acceptable range. Apnea Hypopnea Index is 1.5, which is normal. MEDICATIONS:1. Losartan 25 mg once a day 2. Levothyroxine 100 g once a day 3. Wellbutrin 200 mg once a day 4. Ropinirole 0.25 mg 1-2 tablets daily at bedtime 5. Omeprazole 20 mg once a day 6. Alprazolam 0.25 mg up to 2 times a day as needed During physical exam: GENERAL: A pleasant patient without any distress. VITAL SIGNS: BP 117/77, HR 60, RR 12 , weight 217.6, temperature 97.3, oxygen saturation at room air 97 % . HEENT: PERRLA, EOMI.low position of soft palate, Mallapati 3 . NECK: Supple. No JVD. LUNGS: Clear to percussion and to auscultation. Good air exchange. No wheezing or rhonchi. HEART: S1, S2 regular. ABDOMEN: Soft and nontender.[] EXTREMITIES: No clubbing or cyanosis. EQUITIES ANALYST: Awake, alert, and oriented x3. No focal deficit. Impressions: 1. Obstructive sleep apnea-hypopnea syndrome. Patient demonstrated great compliance with treatment, benefiting from treatment. 2. Obesity, body mass index 38.4, patient increased weight on 14 pounds. 3. History of depression. 4. History of anxiety. 5. Hypothyroidism. 6. Hypertension. 7. History of acid reflux. 8. ALLERGIES. 9. History of right breast cancer, status post surgical treatment and radiation therapy. Plan: 1. Continue using PAP equipment every night for the whole night. 2. To change air filter at least 1-2 times per month. 3. PAP unit should stay lower then position of the head. 4. Advised patient to remove all remaining water from humidifier canister daily and make it dry after each usage. Refill canister with fresh distilled water before each usage. 5. Sleep hygiene with regular time in bed for at least 8 hours. 6. Precautions related to driving. No driving if feel any sleepiness. 7. I will maintain prescription for PAP supplies including mask, tube, filters. 8. Follow up visit in 6 months or earlier if patient has any problems. 9. Watching and losing weight. Thank you very much for allowing me to participate in the management of your patient. Guillermo Arriaga MD, PhD, FAASM. Diplomat of [place] [employer] Medicine, Sleep Medicine Board by [employer] Medicine Home Delivery Driver of [facility] [place]
== END ==
LOC: 3 N SLEEP 16:00
PROVIDERS: ATTEND Internal Medicine
DX: G47.33 Obstructive sleep apnea (adult) (pediatric) (principal); E03.9 Hypothyroidism, unspecified; E66.9 Obesity, unspecified; F32.A Depression, unspecified; F41.9 Anxiety disorder, unspecified; I10 Essential (primary) hypertension; K21.9 Gastro-esophageal reflux disease without esophagitis; T78.40XA Allergy, unspecified, initial encounter; Z68.38 Body mass index [BMI] 38.0-38.9, adult; Z79.890 Hormone replacement therapy; Z79.899 Other long term (current) drug therapy; Z85.3 Personal history of malignant neoplasm of breast; Z99.89 Dependence on other enabling machines and devices; Z88.2 Allergy status to sulfonamides; Z88.0 Allergy status to penicillin
CPT/HCPCS: 99212

== ENCOUNTER → 2023-05-16 | Outpatient (CLI) | payer MEDICARE ==
--- NOTE | 2023-05-16 16:59 | P.PN ---
Subjective DATE: 05/16/2023 FOLLOW UP VISIT. Patient with obstructive sleep apnea hypopnea syndrome return to sleep center for follow-up visit. Information from previous visit have been reviewed. Patient is using PAP equipment every night for the whole night, getting PAP supplies in time. The patient does not have significant problems with the mask, PAP unit and humidification. [place] sleepiness scale is increased to 13. I checked information from PAP unit. PAP unit pressure 10 cm H2O. Usage is 100% for more then 4 hours, average 4.4 hours per night. Leak is 14 l/m, which is in acceptable range. Apnea Hypopnea Index is 1.6, which is normal. MEDICATIONS: Have been reviewed, please see hospital attachment. During physical exam: GENERAL: A pleasant patient without any distress. VITAL SIGNS: Please see below. HEENT: [place] EOMI.low position of soft palate, Mallapati 3 . NECK: Supple. No JVD. LUNGS: Clear to percussion and to auscultation. Good air exchange. No wheezing or rhonchi. HEART: S1, S2 regular. ABDOMEN: Soft and nontender. Obese EXTREMITIES: No clubbing or cyanosis. REFRIGERATOR GLAZIER: Awake, alert, and oriented x3. No focal deficit. Impressions: 1. Obstructive sleep apnea-hypopnea syndrome. Patient demonstrated great compliance with treatment, benefiting from treatment. 2. Obesity, patient increased weight on 18 pounds, body mass index 41.6. 3. Hypothyroidism. 4. Hypertension. 5. History of depression. 6. History of anxiety. 7. History of acid reflux. 8. History of right breast cancer, status postsurgical treatment and radiation treatment. 9. Allergies. Plan: 1. Continue using PAP equipment every night for the whole night. 2. To change air filter at least 1-2 times per month. 3. PAP unit should stay lower then position of the head. 4. Advised patient to remove all remaining water from humidifier canister daily and make it dry after each usage. Refill canister with fresh distilled water before each usage. 5. Sleep hygiene with regular time in bed for at least 8 hours. 6. Precautions related to driving. No driving if feel any sleepiness. 7. I will maintain prescription for PAP supplies including mask, tube, filters. 8. Watching and losing weight. 9. Follow up visit in 6 months or earlier if patient has any problems. Thank you very much for allowing me to participate in the management of your patient. Guillermo Arriaga MD, PhD, FAASM. Diplomat of [place] Board [employer] Sleep Medicine, Sleep Medicine Board by [employer] Medicine Window Unit Air Conditioning Mechanic of [facility] [place] Objective - Vital Signs Vital signs: Vital Signs Temp 98.2 F 05/16/23 16:28 Pulse 76 05/16/23 16:28 Resp 12 05/16/23 16:28 BP 124/79 05/16/23 16:28 Pulse Ox 97 05/16/23 16:28 FiO2 Intake & Output 05/15/23 05/16/23 05/16/23 18:59 06:59 18:59 Weight 106.594 kg
[2023-05-16 17:01] VITALS: BP 124/79; PULSE 76; RESP 12; TEMP 98.2
--- NOTE | 2023-05-16 17:30 | P.PN ---
Subjective DATE: 05/16/2023 FOLLOW UP VISIT. Patient with obstructive sleep apnea hypopnea syndrome return to sleep center for follow-up visit. Information from previous visit have been reviewed. Patient is using PAP equipment every night for the whole night, getting PAP supplies in time. The patient does not have significant problems with the mask, PAP unit and humidification. [place] sleepiness scale is 2, which is perfect. I checked information from PAP unit. PAP unit pressure maximal inspiratory pressure 23, minimal expiratory pressure of 15, pressure support 4, average pressure 20.5/16.5 cm H2O. Usage is 100% for more then 4 hours, average 6.5 hours per night. Leak is perfect 1 l/m. Apnea Hypopnea Index is 0.6, which is normal. MEDICATIONS:1. Metformin 1000 mg twice a day 2. Losartan 3. Amlodipine 4. Hydrochlorothiazide 5. Pravastatin 6. Cyclobenzaprine During physical exam: GENERAL: A pleasant patient without any distress. VITAL SIGNS: Please see notes below. HEENT: PERRLA, EOMI.low position of soft palate, Mallapati 4 . NECK: Supple. No JVD. LUNGS: Clear to percussion and to auscultation. Good air exchange. No wheezing or rhonchi. HEART: S1, S2 regular. ABDOMEN: Soft and nontender.[] EXTREMITIES: No clubbing or cyanosis. HAND ENDBAND CUTTER: Awake, alert, and oriented x3. No focal deficit. Impressions: 1. Obstructive sleep apnea-hypopnea syndrome. Patient demonstrated great compliance with treatment, benefiting from treatment. 2. Obesity, BMI 47.9, patient increased weight on 4 pounds comparing with previous visit. 3. Hypertension. 4. h/o Diabetes mellitus. 5. Hyperlipidemia. 6. Acid reflux. 7. Status post right knee arthroscopic surgery. Plan: 1. Continue using PAP equipment every night for the whole night. 2. To change air filter at least 1-2 times per month. 3. PAP unit should stay lower then position of the head. 4. Advised patient to remove all remaining water from humidifier canister daily and make it dry after each usage. Refill canister with fresh distilled water before each usage. 5. Sleep hygiene with regular time in bed for at least 8 hours. 6. Precautions related to driving. No driving if feel any sleepiness. 7. I will maintain prescription for PAP supplies including mask, tube, filters. 8. Watching and losing weight. 9. Follow up visit in 6 months or earlier if patient has any problems. Thank you very much for allowing me to participate in the management of your patient. Guillermo Arriaga MD, PhD, FAASM. Diplomat of [place] Board of Sleep Medicine, Sleep Medicine Board by [employer] Board [employer] Internal Medicine Life Insurance Salesperson of [facility] [place] Objective - Vital Signs Vital signs: Vital Signs Temp 98.2 F 05/16/23 16:28 Pulse 76 05/16/23 16:28 Resp 12 05/16/23 16:28 BP 124/79 05/16/23 16:28 Pulse Ox 97 05/16/23 16:28 FiO2 Intake & Output 05/15/23 05/16/23 05/16/23 18:59 06:59 18:59 Weight 106.594 kg
== END ==
LOC: 3 N SLEEP 15:46
PROVIDERS: ATTEND Internal Medicine
DX: G47.33 Obstructive sleep apnea (adult) (pediatric) (principal); E66.9 Obesity, unspecified; E03.9 Hypothyroidism, unspecified; I10 Essential (primary) hypertension; Z86.59 Personal history of other mental and behavioral disorders; Z87.19 Personal history of other diseases of the digestive system; Z85.3 Personal history of malignant neoplasm of breast; Z92.3 Personal history of irradiation; Z99.89 Dependence on other enabling machines and devices; Z68.41 Body mass index [BMI] 40.0-44.9, adult; Z88.2 Allergy status to sulfonamides; Z88.0 Allergy status to penicillin; Z79.899 Other long term (current) drug therapy; Z79.890 Hormone replacement therapy
CPT/HCPCS: 99212

== ENCOUNTER → 2023-07-31 | Outpatient (CLI) | payer MEDICARE ==
[2023-07-31 15:23] VITALS: BP 144/83; PULSE 76; RESP 16; TEMP 98.2; BMI 41.3
--- NOTE | 2023-07-31 16:50 | P.BASOAP ---
Subjective Progress Note Date: 07/31/23 Principal diagnosis: Morbid obesity Patient returns for recheck. She has gained 33 pounds since she was last seen 1 year ago. Patient lost her mom in February after losing her dad last year. She then has had a lot of issues with the sale of her parents house. She has been quite depressed she states. She recently started a new medication for her depression. She has not seen a counselor in years. Says she is making bad choices. States she has been fatigued. Rare episodes of vomiting if eating too fast. No significant GERD symptoms. Objective - Vital Signs Vital signs: Vital Signs Temp 98.2 F 07/31/23 15:11 Pulse 76 07/31/23 15:11 Resp 16 07/31/23 15:11 BP 144/83 07/31/23 15:11 Pulse Ox FiO2 Intake & Output 07/30/23 07/31/23 07/31/23 18:59 06:59 18:59 Weight 109.316 kg - Exam Abdomen: Soft, nontender, nondistended Assessment/Plan (1) Morbid obesity Narrative/Plan: 68-year-old female with morbid obesity. Patient has had increasing depression and mood disorder related to deaths in her family. Patient states she has lost a lot of her motivation. Making bad choices. We discussed different ways of trying to get her back on track. Discussed possibly seeing a new counselor. Also discussed possible consideration of GLP-1 agonist which she tried to obtain recently through her insurance company. Plan recheck 6 months. Plan: Date: 07/31/23 Initial Weight: 140.614 kg Initial BMI: 53.1 Current Weight: 109.316 kg Current BMI: 41.3 Type of Surgery: Total Volume in Band: Previous Volume: Volume Removed: Volume Added: Band Size:
== END ==
LOC: BARWHC3 14:43
PROVIDERS: ATTEND Surgery
DX: E66.01 Morbid (severe) obesity due to excess calories (principal); F32.A Depression, unspecified; F39 Unspecified mood [affective] disorder; Z88.0 Allergy status to penicillin; Z88.2 Allergy status to sulfonamides; Z68.41 Body mass index [BMI] 40.0-44.9, adult
CPT/HCPCS: 99211

== ENCOUNTER → 2023-11-29 | Outpatient (CLI) | payer MEDICARE ==
[2023-11-29 10:22] VITALS: BP 148/87; PULSE 80; RESP 16; TEMP 98
--- NOTE | 2023-11-29 10:59 | P.PROGSL ---
Subjective DATE: 11/29/2023 FOLLOW UP VISIT. Patient with obstructive sleep apnea hypopnea syndrome return to sleep center for follow-up visit. Information from previous visit have been reviewed. Patient is using PAP equipment every night for the whole night, getting PAP supplies in time. The patient does not have significant problems with the mask, PAP unit and humidification. [place] sleepiness scale is increased to 15. I checked information from PAP unit. PAP unit pressure 10 cm H2O. Usage is 98% for more then 4 hours, average 5 hours per night. Leak is 17 l/m, which is in acceptable range. Apnea Hypopnea Index is 1.8, which is normal. MEDICATIONS have been reviewed, please see below. During physical exam: GENERAL: A pleasant patient without any distress. VITAL SIGNS: Please see below, weight is 241 lbs. HEENT: PERRLA, EOMI.low position of soft palate, Mallapati 3. NECK: Supple. No JVD. LUNGS: Clear to percussion and to auscultation. Good air exchange. No wheezing or rhonchi. HEART: S1, S2 regular. ABDOMEN: Soft and nontender. Slightly obese EXTREMITIES: No clubbing or cyanosis. HOSPITALIST MEDICAL DIRECTOR: Awake, alert, and oriented x3. No focal deficit. Impressions: 1. Obstructive sleep apnea-hypopnea syndrome. Patient demonstrated great compliance with treatment, benefiting from treatment. 2. Obesity, BMI 42.6, patient increased weight on 8 pounds comparing with previous visit. 3. Status post bariatric surgery 7 years ago. 4. History of depression. 5. History of anxiety. 6. History of acid reflux. 7. Allergy. 8. History of right breast cancer status post surgical and radiation treatment. 9. Status post bilateral knee replacement. 10. Status post UPPP and nasal surgery for sinuses problems. 11. Status post tonsillectomy. Plan: 1. Continue using PAP equipment every night for the whole night. 2. Sleep hygiene with regular time in bed for at least 7.5-8 hours 3. PAP unit should stay lower then position of the head. 4. Advised patient to remove all remaining water from humidifier canister daily and make it dry after each usage. Refill canister with fresh distilled water before each usage. 5. Watching and losing weight. 6. Precautions related to driving. No driving if feel any sleepiness. 7. I will maintain prescription for PAP supplies including mask, tube, filters. 8. Follow up visit in 8 months or earlier if patient has any problems. Thank you very much for allowing me to participate in the management of your patient. Guillermo Arriaga MD, PhD, FAASM. Diplomat of [place] Board of Sleep Medicine, Sleep Medicine Board by [employer] Board of Internal Medicine Pipe Supervisor of [facility] [place] Objective - Vital Signs Vital Signs: Vital Signs Temp 98 F 11/29/23 10:21 Pulse 80 11/29/23 10:21 Resp 16 11/29/23 10:21 BP 148/87 11/29/23 10:21 Pulse Ox 97 11/29/23 10:21 FiO2 Intake & Output 11/28/23 11/29/23 11/29/23 18:59 06:59 18:59 Weight 109.316 kg Home Medications: Home Medications Medication Instructions Recorded Confirmed Type Levothyroxine Sodium [Synthroid] 100 mcg PO QAM 11/11/13 11/29/23 History buPROPion XL [Wellbutrin XL] 200 mg PO BID 11/11/13 11/29/23 History ALPRAZolam [Xanax] 0.25 mg PO BID PRN #30 tablet 11/20/13 11/29/23 Rx Ibuprofen [Motrin Ib] 400 mg PO BID 01/14/18 11/29/23 History Losartan Potassium [Cozaar] 25 mg PO DAILY 01/14/18 11/29/23 History rOPINIRole HCL [Requip] 0.25 mg PO HS 01/14/18 11/29/23 History Cetirizine HCl [Zyrtec] 10 mg PO DAILY 09/21/21 11/29/23 History FLUoxetine HCL [PROzac] 30 mg PO DAILY 09/21/21 11/29/23 History busPIRone HCL 5 mg PO DAILY 11/29/23 11/29/23 History
== END ==
LOC: 3 N SLEEP 10:12
PROVIDERS: ATTEND Internal Medicine
DX: G47.33 Obstructive sleep apnea (adult) (pediatric) (principal); E66.9 Obesity, unspecified; F32.A Depression, unspecified; F41.9 Anxiety disorder, unspecified; K21.9 Gastro-esophageal reflux disease without esophagitis; Z85.3 Personal history of malignant neoplasm of breast; Z98.890 Other specified postprocedural states; Z96.653 Presence of artificial knee joint, bilateral; Z98.84 Bariatric surgery status; Z68.41 Body mass index [BMI] 40.0-44.9, adult; Z92.3 Personal history of irradiation; Z99.89 Dependence on other enabling machines and devices; Z90.89 Acquired absence of other organs; Z88.2 Allergy status to sulfonamides; Z88.0 Allergy status to penicillin
CPT/HCPCS: 99212

== ENCOUNTER → 2024-01-29 | Outpatient (CLI) | payer MEDICARE ==
[2024-01-29 15:03] VITALS: BP 149/62; PULSE 70; RESP 16; TEMP 97.8; BMI 40.3
--- NOTE | 2024-01-29 15:28 | P.BASOAP ---
Subjective Progress Note Date: 01/29/24 Principal diagnosis: Morbid obesity Patient here for reevaluation. She was last seen 6 months ago. Still lacks motivation and is depressed. Says it is a bit improved. She has lost 6 pounds. She is preparing to move to [place] next year. She says she tried to start a GLP-1 agonist but insurance declined. Still has occasional episodes of vomiting. Worse with meats, pasta, breads. No GERD. Her labs were checked in September and they look good with the exception of a slightly low iron. Objective - Vital Signs Vital signs: Vital Signs Temp 97.8 F 01/29/24 15:01 Pulse 70 01/29/24 15:01 Resp 16 01/29/24 15:01 BP 149/62 01/29/24 15:01 Pulse Ox FiO2 Intake & Output 01/28/24 01/29/24 01/29/24 18:59 06:59 18:59 Weight 106.594 kg - Exam Abdomen: Soft, nontender, nondistended Assessment/Plan (1) Morbid obesity Narrative/Plan: Patient doing well today. Weight has come down somewhat. Still depressed. Plans to see her primary care physician in the near future. They will discuss once again trying to have insurance approval for GLP-1 agonist. Recheck 6 months. Plan: Date: 01/29/24 Initial Weight: 140.614 kg Initial BMI: 53.1 Current Weight: 106.594 kg Current BMI: 40.3 Type of Surgery: Total Volume in Band: Previous Volume: Volume Removed: Volume Added: Band Size:
== END ==
LOC: BARWHC3 14:29
PROVIDERS: ATTEND Surgery
DX: E66.01 Morbid (severe) obesity due to excess calories (principal); Z68.41 Body mass index [BMI] 40.0-44.9, adult; Z88.0 Allergy status to penicillin; Z88.2 Allergy status to sulfonamides
CPT/HCPCS: 99211

== ENCOUNTER → 2024-07-29 | Outpatient (CLI) | payer MEDICARE ==
[2024-07-29 14:45] VITALS: BP 132/83; PULSE 73; RESP 16; TEMP 98.4; BMI 37.5
--- NOTE | 2024-07-29 15:39 | P.BASOAP ---
Subjective Progress Note Date: 07/29/24 Principal diagnosis: Morbid obesity Patient here for bariatric follow-up. Doing well since last visit. Was seen in January. Patient says her depression is improved. She has lost 16 pounds. Now taking Qsymia. Plans to move to [place] permanently in December or January. Exercising a bit more. Making better choices. Objective - Vital Signs Vital signs: Vital Signs Temp 98.4 F 07/29/24 14:42 Pulse 73 07/29/24 14:42 Resp 16 07/29/24 14:42 BP 132/83 07/29/24 14:42 Pulse Ox FiO2 Intake & Output 07/28/24 07/29/24 07/29/24 18:59 06:59 18:59 Weight 99.337 kg - Exam Abdomen: Soft, nontender, nondistended Assessment/Plan (1) Morbid obesity Narrative/Plan: Patient doing well at this time. Continue Qsymia along with dietary and exercise regimen. Plan recheck in December. Plan: Date: 07/29/24 Initial Weight: 140.614 kg Initial BMI: 53.1 Current Weight: 99.337 kg Current BMI: 37.5 Type of Surgery: Vertical Sleeve Gastrectomy Total Volume in Band: Previous Volume: Volume Removed: Volume Added: Band Size:
== END ==
LOC: BARWHC3 02:35
PROVIDERS: ATTEND Surgery
DX: E66.01 Morbid (severe) obesity due to excess calories (principal); Z88.0 Allergy status to penicillin; Z88.2 Allergy status to sulfonamides; Z68.37 Body mass index [BMI] 37.0-37.9, adult
CPT/HCPCS: 99211

== ENCOUNTER → 2024-08-14 | Outpatient (CLI) | payer MEDICARE ==
[2024-08-14 10:30] VITALS: BP 132/83; PULSE 74; RESP 16; TEMP 97.8
--- NOTE | 2024-08-14 10:46 | P.PROGSL ---
Subjective DATE: 08/14/2024 FOLLOW UP VISIT. Patient with obstructive sleep apnea hypopnea syndrome return to sleep center for follow-up visit. Information from previous visit have been reviewed. Patient is using PAP equipment every night for the whole night, getting PAP supplies in time. The patient does not have significant problems with the mask, PAP unit and humidification. [place] sleepiness scale is increased to 12. I checked information from PAP unit. PAP unit pressure 10 cm H2O. Usage is 96% for more then 4 hours, average 4.6 hours per night. Leak is 31 l/m, which is in acceptable range. Apnea Hypopnea Index is 0.6, which is normal. MEDICATIONS have been reviewed, please see below. During physical exam: GENERAL: A pleasant patient without any distress. VITAL SIGNS: Please see below, weight is 216 lbs. HEENT: PERRLA, EOMI.low position of soft palate, Mall[place]ati 3. NECK: Supple. No JVD. LUNGS: Clear to percussion and to auscultation. Good air exchange. No wheezing or rhonchi. HEART: S1, S2 regular. ABDOMEN: Soft and nontender.[] EXTREMITIES: No clubbing or cyanosis. COLOR FINISHER: Awake, alert, and oriented x3. No focal deficit. Impressions: 1. Obstructive sleep apnea-hypopnea syndrome. Patient demonstrated great compliance with treatment, benefiting from treatment. 2. Obesity, patient lost 25 pounds comparing with previous visit, BMI 38.2. 3. Status post bariatric surgery 7 years ago. 4. History of depression. 5. History of anxiety. 6. History of acid reflux. 7. Status post surgical and radiation treatment for right breast cancer. 8. Allergy. 9. Status post bilateral knee replacement. 10. Status post tonsillectomy. 11. Status post UPPP and nasal surgery. Plan: 1. Continue using PAP equipment every night for the whole night. 2. Sleep hygiene with regular time in bed for at least 7.5-8 hours 3. PAP unit should stay lower then position of the head. 4. Advised patient to remove all remaining water from humidifier canister daily and make it dry after each usage. Refill canister with fresh distilled water before each usage. 5. Watching and continue losing weight. 6. Precautions related to driving. No driving if feel any sleepiness. 7. I will maintain prescription for PAP supplies including mask, tube, filters. 8. Follow up visit in 8 months or earlier if patient has any problems. Thank you very much for allowing me to participate in the management of your patient. Guillermo Arriaga MD, PhD, FAASM. Diplomat of [employer], Sleep Medicine Board by [employer] [facility] [place] Objective - Vital Signs Vital Signs: Vital Signs Temp 97.8 F 08/14/24 10:29 Pulse 74 08/14/24 10:29 Resp 16 08/14/24 10:29 BP 132/83 08/14/24 10:29 Pulse Ox 97 08/14/24 10:29 FiO2 Intake & Output 08/13/24 08/14/24 08/14/24 18:59 06:59 18:59 Weight 97.976 kg Home Medications: Home Medications Medication Instructions Recorded Confirmed Type Levothyroxine Sodium [Synthroid] 100 mcg PO QAM 11/11/13 08/14/24 History buPROPion XL [Wellbutrin XL] 200 mg PO BID 11/11/13 08/14/24 History ALPRAZolam [Xanax] 0.25 mg PO BID PRN #30 tablet 11/20/13 08/14/24 Rx Ibuprofen [Motrin Ib] 400 mg PO BID 01/14/18 08/14/24 History Losartan Potassium [Cozaar] 25 mg PO DAILY 01/14/18 08/14/24 History rOPINIRole HCL [Requip] 0.25 mg PO HS 01/14/18 08/14/24 History Cetirizine HCl [Zyrtec] 10 mg PO DAILY 09/21/21 08/14/24 History FLUoxetine HCL [PROzac] 30 mg PO DAILY 09/21/21 08/14/24 History busPIRone HCL 5 mg PO DAILY 11/29/23 07/30/24 History
== END ==
LOC: 3 N SLEEP 10:19
PROVIDERS: ATTEND Internal Medicine
DX: G47.33 Obstructive sleep apnea (adult) (pediatric) (principal); E66.9 Obesity, unspecified; Z68.38 Body mass index [BMI] 38.0-38.9, adult; F32.A Depression, unspecified; F41.9 Anxiety disorder, unspecified; T78.40XA Allergy, unspecified, initial encounter; Z98.84 Bariatric surgery status; Z96.653 Presence of artificial knee joint, bilateral; Z92.3 Personal history of irradiation; Z90.89 Acquired absence of other organs; Z98.890 Other specified postprocedural states; Z87.11 Personal history of peptic ulcer disease; Z99.89 Dependence on other enabling machines and devices; Z88.0 Allergy status to penicillin; Z88.2 Allergy status to sulfonamides
CPT/HCPCS: 99212